=== PATIENT | male | born 1935 | race Caucasian/White ===

== ENCOUNTER 2022-01-12 10:29 | Inpatient (IN) | payer MEDICARE, OTHER ==
[~2022-01-12] VITALS: Ht 188 cm; Wt 90.0 kg
[2022-01-12] MEDS ORDERED: ACETAMINOPHEN 325 MG TABLET PO PRN (11:00)
[2022-01-12] MEDS ORDERED: diphenhydrAMINE 25 MG TAB (BENADRYL) PO PRN (11:00)
[2022-01-12] MEDS ORDERED: ONDANSETRON 4 MG/2 ML (SDV) Z0FRAN IV PRN (11:00)
[2022-01-12] MEDS ORDERED: ANTACID SUSP 30 ML UDC (MYLANTA) PO PRN (11:00)
[2022-01-12] MEDS ORDERED: ONDANSETRON 4 MG (ZOFRAN) ORAL DISSOLVE TAB PO PRN (11:00)
[2022-01-12] MEDS ORDERED: MILK OF MAGNESIA 400 MG/5 ML 30 ML UDC PO PRN (11:00)
[2022-01-12] MEDS ORDERED: BISACODYL 10 MG SUPP (DULCOLAX) PR PRN (11:00)
[2022-01-12] MEDS ORDERED: polyethylene glycoL POWDER 17 GM (MIRALAX) PACK PO PRN (11:00)
[2022-01-12] MEDS ORDERED: CALCIUM CARBONATE 500 MG (TUMS) TAB.CHEW PO PRN (11:00)
[2022-01-12] MEDS ORDERED: LACTULOSE SYRUP 10GM/15ML (ENULOSE) 30ML UDC PO PRN (11:00)
[2022-01-12] MEDS ORDERED: diphenhydrAMINE 50 MG/ML INJ (BENADRYL) IVP PRN (11:00)
[2022-01-12] MEDS ORDERED: NS IV 1000 ML 1,000 ML ONE (11:39)
[2022-01-12] MEDS: NS IV 1000 ML 1,000 ML IV SCH (11:53)
[2022-01-12 12:00] VITALS: BP 124/74
--- NOTE | 2022-01-12 12:09 | History & Physical ---
History of Present Illness HPI/Chief Complaint CC: Right hip fracture HPI: This is an 86yoWM clinic patient of mine who recently moved from [place] to live with his son at [place] who has numerous medical conditions managed at [facility] who just DC from [facility] after a 3 day stay last for abdominal pain with N/V and was found to have pancreatitis with abnormal CT scans revealing cystic liver and kidneys with chronic left sided ATX but was able to DC last Friday and saw me in clinic on Friday in [place] and was feeling well and amylase and lipase were trending down and he was tolerating bland diet who suffered a fall at home today when he was using his urinal and has suffered a right hip fracture after assessed in [facility] ER shortly before my arrival for morning rounds. I assessed him in the ER and since Dr Kelly was unavailable I reached out to Dr Cade and he graciously agreed for consultation and plans on repairing the fracture tomorrow at 0800. Dr Cruz has been consulted since he recently had a defib and pacemaker placed in 05/2021. He does have a h/o CKD and his creat was 2.4 at [facility] last week but has improved to 1.4 today. He is considered high risk for complications before during and post operatively but no ability to modify his risks so it is prudent to proceed on with repair as planned. He is [place] and his at bedside agrees with the plan. Considering hos complex issues I had Tylor Neal MSIII compile problem list on Friday after clinic appt: Hemorrhoids Diverticulosis of sigmoid and descending colon Chronic Heart Failure Pneumonia Lower GI Bleed Hypertension Polycystic dysplastic kidney Polycystic kidney Weakness due to cerebrovascular accident Sepsis Bacteremia due to E. Coli Infection to ESBL-producing E coli Myopathy Pancreatitis Abdominal Pain Common Bile Duct obstruction GI bleed Diverticulosis Colitis Emesis Influenza Reactive airway disease Urinary frequency Polycystic liver disease UTI Bacteremia Coronary artery disease History of sepsis Cholangitis due to bile duct calculus with obstruction Cough Sinusitis Leukocytosis Elevated LFTs Bacteremia Klebsiella pneumoniae Dehydration Vomiting Abdominal pain SIRS Biliary tract disease Chronic Kidney Disease (CKD) Anemia Acute bronchitis Recurrent fever Body aches Malaise and fatigue Renal insufficiency Intractable abdominal pain Persistent atrial fibrillation with RVR Hypertension Acute renal injury Diverticulitis Left Bundle Branch Block (LBBB) Other cardiomyopathies Combined rheumatic disorders of mitral, aortic, and tricuspid valves Ischemic cardiomyopathy Hematemesis Hypotension Tachycardia CKD stage 3, GFR 30-59 ml/min Cardiac Arrest DVT prophylaxis Hip pain Cellulitis Constipation Gastritis Duodenal bulb ulcer Sepsis Dilated cardiomyopathy Rib fractures Hypokalemia Hypomagnesemia Hyperlipidemia Sleep apnea Tricuspid regurgitation Acute on chronic systolic heart failure Mitral regurgitation Localized edema Duodenal perforation C. diff colitis- cannot tolerate vancomycin HIT Left femoral hip fracture and repair Left total knee replacement Drains for liver cyst ([facility]) Liver abscess Benign tremor involving right arm GI bleeding Gastritis Peptic ulcer disease Gout Hyperlipidemia Cerebrovascular accident Fever of unknown origin Appendectomy Cholecystectomy Hernia repair Tonsillectomy Hip procedure Parathyroid adenoma removal Lumbar surgery Multiple ERCPs Duodenal perforation repaired following the ERCP Multiple colonoscopies and sigmoidoscopies PTCA of right coronary artery in 2006 Left femoral hip fracture and repair Transurethral resection of the prostate Vasectomy PICC lines in the past GI bleed on warfarin Chronic recurrent bacteremia Dyslipidemia Degenerative joint disease Polycythemia Source: patient, family Exam Limitations: no limitations Date Seen 01/12/22 Time Seen by a Provider: 12:30 Attending Physician Ronit Solorio DO PCP Referring Physician Date of Admission Jan 12, 2022 at 11:04 Home Medications & Allergies Home Medications Reviewed patient Home Medication Reconciliation performed by pharmacy medication reconciliations product support technician and/or nursing. Patients Allergies have been reviewed. Allergies Allergies Coded Allergies gentamicin (Verified Allergy, Unknown, 01/12/22) vancomycin (Verified Allergy, Unknown, 01/12/22) Past Gjyocoh-Gzmsir-Pjzevt Hx Past Med/Social Hx: Reviewed Nursing Past Med/Soc Hx, Reviewed and Corrections made Patient Social History Marrital Status: Employed/Student: retired Alcohol Use: Denies Use Smoking Status: Never a Smoker Past Medical History Surgeries: Coronary Stent, Pacemaker Respiratory: Pneumonia Cardiac: Cardiomyopathy, Chronic Edema/Swelling, Coronary Artery Disease, High Cholesterol, Hypertension, Peripheral Vascular Neurological: Dementia Genitourinary: Benign Prostatic Hyperpl, Bladder Infection, Renal Failure Gastrointestinal: Gastroesophageal Reflux, Pancreatitis liver abscess x 2 Musculoskeletal: Arthritis, Chronic Back Pain Review of Systems Constitutional: see HPI, malaise, weakness EENTM: no symptoms reported Respiratory: no symptoms reported Cardiovascular: no symptoms reported Gastrointestinal: no symptoms reported Genitourinary: no symptoms reported Musculoskeletal: joint pain Skin: no symptoms reported Psychiatric/Neurological: No Symptoms Reported All Other Systems Reviewed Negative Unless Noted: Yes Physical Exam Physical Exam Vital Signs Vital Signs - First Documented 01/12/22 01/12/22 12:00 14:12 Temp 36.2 Pulse 89 Resp 16 B/P (MAP) 124/74 (91) Pulse Ox 98 O2 Delivery Room Air FiO2 21 Capillary Refill : Height, Weight, BMI Height: '" Weight: lbs. oz. kg; 25.46 BMI Method: General Appearance: No Apparent Distress, WD/WN, Chronically ill Eyes: Bilateral Eye Normal Inspection, Bilateral Eye PERRL HEENT: PERRL/EOMI, Normal ENT Inspection, Pharynx Normal, Other ([place]) Neck: Full Range of Motion, Normal Inspection, Non Tender, Supple, Carotid Bruit Respiratory: Chest Non Tender, Lungs Clear, Normal Breath Sounds, No Accessory Muscle Use, No Respiratory Distress Cardiovascular: Regular Rate, Rhythm, No Edema, No Gallop, No JVD, No Murmur, Normal Peripheral Pulses Gastrointestinal: Normal Bowel Sounds, No Organomegaly, No Pulsatile Mass, Non Tender, Soft Back: Normal Inspection, No CVA Tenderness, No Vertebral Tenderness Extremity: Normal Capillary Refill, Normal Inspection, Other (limited ROM right leg) Neurologic/Psychiatric: Alert, Oriented x3, Normal Mood/Affect, 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 Assessment/Plan Admission Diagnosis Assessment: Right hip fracture in need of repair so planned for tomorrow per Dr Alyssia LARA previous stents Ischemic cardiomyopathy has pacemaker and defib placed 05/2021 CKD Recent pancreatitis last weekend amylase and lipase now 143/527 Acute UTI placed on Rocephin GERD BPH Presbycusis Memory deficit Frail status Gout Depression Renal lithasis h/o hyperparathyroidism Neuropathy Polycystic kidney disease Cystic liver disease Previous liver abscess s/p drainage x 2 (1 at [place] other at [facility] in ) Anemia Plan: Dr Cruz consult Dr Cade consult Pain management Check labs in am Schultz Lovenox held until after surgery Monitor hgb Gentle IVF High risk for psychosis Admission Status: Inpatient Order (span 2 midnights) Reason for Inpatient Admission: hip fracture Diagnosis/Problems Diagnosis/Problems (1) Hip fracture, right (2) Pancreatitis (3) CKD (chronic kidney disease) stage 3, GFR 30-59 ml/min (4) Anemia (5) CAD (coronary artery disease) (6) Pacemaker (7) Presbycusis (8) Fall Clinical Quality Measures DVT/VTE Risk/Contraindication: Contraindications-Pharm: Other *list below* Other: or RONIT SOLORIO DO Jan 12, 2022 12:09
--- NOTE | 2022-01-12 12:27 | CONSULTATION REPORT ---
DATE OF SERVICE: 01/12/2022 INPATIENT CONSULTATION REASON FOR CONSULTATION: Right intertrochanteric femur fracture. HISTORY: The patient is an 86-year-old gentleman with multiple medical problems who was recently treated for pancreatitis at an outside facility, who fell this morning when he tripped on his walker. He was found to have a nondisplaced intertrochanteric femur fracture at an outside facility. He was referred here for definitive treatment. He denies any antecedent pain. PHYSICAL EXAMINATION: Right lower extremity demonstrates symmetric pulses. He has intact dorsiflexion and plantarflexion of the toes. Radiographs reveal nondisplaced intertrochanteric femur fracture. PLAN: Right hip intramedullary nail. The risks, benefits, options, ramifications and recovery were discussed with the patient and his . They understand and wished to proceed. We will plan on doing this on 01/13/2022 at 0800. Job ID: [id number] DocumentID: [id number] Dictated Date: 01/12/2022 12:10:44 Pairer Substandard Date: 01/12/2022 12:26:24 Dictated By: JENNA PHILLIPS MD
[2022-01-12] MEDS: fentaNYL INJ 100 MCG/2 ML AMP IVP PRN ×3 (12:33→20:54)
--- NOTE | 2022-01-12 13:42 | Consultation-Cardiology ---
HPI-Cardiology Cardiology Consultation Date of Consultation 01/12/22 Date of Admission Time Seen by Provider: 13:37 Indication: Congestive heart failure HPI 86 years old gentleman with extensive cardiac history as described below. Sustained a fall with fracture to his right hip. Reported nonsyncopal fall, overall generalized fatigue and loss of energy, he moved to our area recently. Has been established with a radiographer mammographer in [place]. Had a pacemaker implanted in May 2021. He denied any chest pain. No syncope. Mild dyspnea on exertion. Home Medications & Allergies Allergies: Coded Allergies: gentamicin (Verified Allergy, Unknown, 01/12/22) vancomycin (Verified Allergy, Unknown, 01/12/22) Home Medication List Reviewed: Yes NBS-Tcrwqg-Vyjoza Hx Patient Social History Marital Status: Employed/Student: retired Smoking Status: Never a Smoker Have you traveled recently?: No Alcohol Use?: Yes Past Medical History Discussed below Family Medical History Family Medical Hx Noncontributory Review of Systems-General Review of Systems Constitutional: see HPI, malaise, weakness EENTM: see HPI, no symptoms reported Respiratory: see HPI; No cough; dyspnea on exertion; No hemoptysis, No orthopnea, No phlegm, No short of breath, No stridor, No wheezing, No other Cardiovascular: see HPI; No chest pain, No edema, No Hx of Intervention; palpitations; No syncope, No vascular heart diseas, No other Gastrointestinal: no symptoms reported, see HPI Genitourinary: no symptoms reported, see HPI Musculoskeletal: see HPI, joint pain (Hip fracture) Skin: no symptoms reported, see HPI Psychiatric/Neurological: No Symptoms Reported, See HPI Physical Exam Physical Exam Vital Signs Vital Signs - First Documented 01/12/22 01/12/22 12:00 14:12 Temp 36.2 Pulse 89 Resp 16 B/P (MAP) 124/74 (91) Pulse Ox 98 O2 Delivery Room Air FiO2 21 Capillary Refill : Height, Weight, BMI Height: '" Weight: lbs. oz. kg; 25.46 BMI Method: General Appearance: No Apparent Distress, WD/WN Eyes: Bilateral Eye Normal Inspection, Bilateral Eye PERRL, Bilateral Eye EOMI HEENT: PERRL/EOMI, TMs Normal, Normal ENT Inspection, Pharynx Normal, Moist Mucous Membranes Neck: Full Range of Motion, Normal Inspection, Non Tender, Supple, Carotid Bruit Respiratory: Chest Non Tender, Normal Breath Sounds, No Accessory Muscle Use, No Respiratory Distress Cardiovascular: Regular Rate, Rhythm, No Edema, No Gallop, No JVD, Normal Peripheral Pulses, Systolic Murmur (Systolic murmur at left sternal border) Gastrointestinal: Normal Bowel Sounds, No Organomegaly, No Pulsatile Mass, Non Tender, Soft Back: Normal Inspection, No CVA Tenderness, No Vertebral Tenderness Extremity: Normal Capillary Refill, No Pedal Edema, Other (Right hip fracture) Neurologic/Psychiatric: Alert, Oriented x3, No Motor/Sensory Deficits, Normal Mood/Affect Skin: Normal Color, Warm/Dry Lymphatic: No Adenopathy A/P-Cardiology Admission Diagnosis Hip fracture Coronary artery disease Congestive heart failure, chronic compensated left ventricular systolic dysfunction Hypertension Assessment/Plan Right hip fracture, scheduled for possible surgery, management per orthopedic. Coronary artery disease, history of cardiac catheterization and stent in 2005, no recent stenting was done, has been following with a radiographer mammographer in [place]. Moved to this area recently. Congestive heart failure, chronic compensated left ventricular systolic dysfunction, ejection fraction 30 to 35%. History of mitral regurgitation tricuspid regurgitation, mild aortic stenosis noted on echo. Restart home medication monitor Paroxysmal atrial fibrillation, intolerant to anticoagulation secondary to GI bleed. 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 Chronic kidney disease stage III-IV, following with primary care physician Hypertension, monitor blood pressure Hyperlipidemia, monitor lipids History of heparin induced thrombocytopenia, monitor platelets closely. History of GI bleed, peptic ulcer disease, intolerant to aggressive a nticoagulation. History of pancreatitis, resolved recently History of parathyroid adenoma, cholecystectomy, liver abscess and drainage, hernia surgery, gouty arthritis. Peptic ulcer disease Clinical Quality Measures DVT/VTE Risk/Contraindication: Contraindications-Pharm: Other *list below* Other: or NGUYEN BELL MD Jan 12, 2022 13:42
[2022-01-12] MEDS: SUCRALFATE 1 GM (CARAFATE) TAB PO SCH ×3 (13:54→21:00)
[2022-01-12 14:12] VITALS: BP 124/74
--- NOTE | 2022-01-12 14:12 | Diagnostic Imaging Report ---
INDICATION: Cough. TIME OF EXAM: 1:23 PM COMPARISON: No prior studies are available for comparison. Dual lead left subclavian cardiac pacer is in place. There is a left-sided small effusion with some associated left basilar atelectasis or infiltrate. Right lung is clear. There is no pneumothorax IMPRESSION: Left basilar infiltrate or atelectasis and left basilar effusion. Dictated by: Dictated on workstation # [id number]
[2022-01-12] MEDS ORDERED: RT-ALBUTEROL SULF 2.5 MG/3 ML PRE-MIX VIAL INH PRN (14:30)
[2022-01-12] MEDS: HYDROcodone/APAP 5 MG/325 MG (LORTAB) TAB PO PRN (15:22)
[2022-01-12 16:00] VITALS: BP 100/62
[2022-01-12 19:34] VITALS: BP 106/65
[2022-01-12] MEDS ORDERED: HALOPERIDOL 5 MG/ML (HALDOL) VIAL IM PRN (20:00)
[2022-01-12] MEDS: PANTOPRAZOLE 40 MG (PROTONIX) TAB PO SCH (20:55)
[2022-01-12] MEDS: DOCUSATE SODIUM 100 MG (COLACE) CAP PO SCH (20:55)
[2022-01-12] MEDS: SENNOSIDES 8.6 MG (SENOKOT) TAB PO SCH (20:55)
[2022-01-12] MEDS ORDERED: MELATONIN 3 MG TABLET PO PRN (21:00)
[2022-01-13] VITALS (14 sets, daily range): BP systolic 95–111; BP diastolic 51–64
[2022-01-13] MEDS: NS IV 1000 ML 1,000 ML IV SCH ×2 (01:00→18:07)
[2022-01-13 06:03] LABS: BASOPHILS # (AUTO) 0.1 10^3/uL (0.0-0.1); BASOPHILS % (AUTO) 1 % (0-10); EOSINOPHILS # (AUTO) 0.1 10^3/uL (0.0-0.3); EOSINOPHILS % (AUTO) 2 % (0-10); HEMATOCRIT 29 % (40-54); HEMOGLOBIN 8.9 g/dL (13.3-17.7); LYMPHOCYTES # (AUTO) 0.7 10^3/uL (1.0-4.0); LYMPHOCYTES % (AUTO) 9 % (12-44); MEAN CORPUSCULAR HEMOGLOBIN 28 pg (25-34); MEAN CORPUSCULAR HGB CONC 31 g/dL (32-36); MEAN CORPUSCULAR VOLUME 89 fL (80-99); MEAN PLATELET VOLUME 10.1 fL (9.0-12.2); MONOCYTES # (AUTO) 0.5 10^3/uL (0.0-1.0); MONOCYTES % (AUTO) 6 % (0-12); NEUTROPHILS # (AUTO) 6.9 10^3/uL (1.8-7.8); NEUTROPHILS % (AUTO) 82 % (42-75); PLATELET COUNT 120 10^3/uL (130-400); WHITE BLOOD COUNT 8.5 10^3/uL (4.3-11.0)
[2022-01-13 06:22] LABS: ALBUMIN 2.6 GM/DL (3.2-4.5); POTASSIUM 3.9 MMOL/L (3.6-5.0)
--- NOTE | 2022-01-13 06:22 | Progress Note ---
Subjective Date Seen by a Provider: Jan 13, 2022 Time Seen by a Provider: 12:00 Subjective/Events-last exam Patient seen postoperatively at bedside Patient appears to be doing well No pain is reported but patient still sedated from anesthesia I did prepare of delirium Labs reviewed Checked meds Objective Exam Last Set of Vital Signs Vital Signs Date Time Temp Pulse Resp B/P (MAP) Pulse Ox O2 Delivery O2 Flow Rate FiO2 01/13/22 04:00 37.0 70 17 101/55 (70) 94 Room Air 01/12/22 14:12 21 Capillary Refill : I&O Intake and Output 01/13/22 00:00 Intake Total 2860 ml Output Total 500 ml Balance 2360 ml Intake Oral 1860 ml IV Total 1000 ml Output Urine Total 500 ml Daily Weight Change No General: Other ([place]) Lungs: Clear to Auscultation, Normal Air Movement Heart: Regular Rate Results Lab Laboratory Tests 01/13/22 05:52: White Blood Count 8.5, Red Blood Count 3.23L, Hemoglobin 8.9L, Hematocrit 29L, Mean Corpuscular Volume 89, Mean Corpuscular Hemoglobin 28, Mean Corpuscular Hemoglobin Concent 31L, Red Cell Distribution Width 22.9H, Platelet Count 120L, Mean Platelet Volume 10.1, Immature Granulocyte % (Auto) 1, Neutrophils (%) (Auto) 82H, Lymphocytes (%) (Auto) 9L, Monocytes (%) (Auto) 6, Eosinophils (%) (Auto) 2, Basophils (%) (Auto) 1, Neutrophils # (Auto) 6.9, Lymphocytes # (Auto) 0.7L, Monocytes # (Auto) 0.5, Eosinophils # (Auto) 0.1, Basophils # (Auto) 0.1, Immature Granulocyte # (Auto) 0.1 Assessment/Plan Assessment/Plan Assess & Plan/Chief Complaint Assessment: Right hip fracture status post uncomplicated repair per Dr Cade POD#0 CAD previous stents Ischemic cardiomyopathy has pacemaker placed 05/2021 CKD Recent pancreatitis last weekend amylase and lipase now 143/527 Acute UTI placed on Rocephin GERD BPH Presbycusis Memory deficit Frail status Gout Depression Renal lithasis h/o hyperparathyroidism Neuropathy Polycystic kidney disease Cystic liver disease Previous liver abscess s/p drainage x 2 (1 at [place] other at [facility] in ) Anemia Plan: Dr Cruz consult Dr Cade consult Pain management Check labs in am Schultz Lovenox held until after surgery Monitor hgb Gentle IVF High risk for psychosis 01/13/2022: Supportive care Haldol and Ativan if needed for delirium PT and OT tomorrow Monitor labs Rocephin for UTI Iron infusions Swing bed at [place] Diagnosis/Problems Diagnosis/Problems (1) Hip fracture, right (2) Pancreatitis (3) CKD (chronic kidney disease) stage 3, GFR 30-59 ml/min (4) Anemia (5) CAD (coronary artery disease) (6) Pacemaker (7) Presbycusis (8) Fall Clinical Quality Measures DVT/VTE Risk/Contraindication: Contraindications-Pharm: Other *list below* Other: or GEORGINA SOLORIO DO Jan 13, 2022 06:22
[2022-01-13 06:23] LABS: CALCIUM 8.2 MG/DL (8.5-10.1)
[2022-01-13 06:25] LABS: TOTAL PROTEIN 5.6 GM/DL (6.4-8.2)
[2022-01-13 06:28] LABS: CREATININE SERUM 1.4 MG/DL (0.60-1.30)
[2022-01-13] MEDS ORDERED: IRON SUCROSE 200 MG/10 ML (VENOFER) VIAL IV SCH (06:30)
[2022-01-13] MEDS ORDERED: BUPIVACAINE 0.25% 30 ML (SENSORCAINE) VIAL ONE (07:00)
[2022-01-13] MEDS: SUCRALFATE 1 GM (CARAFATE) TAB PO SCH ×4 (07:22→20:47)
[2022-01-13] MEDS ORDERED: MIDAZOLAM 2 MG/2 ML (VERSED) VIAL ONE (07:23)
[2022-01-13] MEDS ORDERED: fentaNYL INJ 100 MCG/2 ML AMP ONE ×2 (07:23→08:30)
--- NOTE | 2022-01-13 07:35 | Progress Note-Pre Operative ---
Pre-Operative Progress Note H&P Reviewed The H&P was reviewed, patient examined and no changes noted. Date Seen by Provider: Jan 13, 2022 Time Seen by Provider: 07:29 Date H&P Reviewed: Jan 13, 2022 Time H&P Reviewed: 07:11 Pre-Operative Diagnosis: right intertrochanteric femur fracture JENNA PHILLIPS MD Jan 13, 2022 07:35
--- NOTE | 2022-01-13 07:36 | Progress Note-Post Operative ---
Post-Operative Progess Note Surgeon (s)/Major Sales Associate (s) Surgeon JENNA PHILLIPS MD Major Sales Associate: Michoacano Cardenas Pre-Operative Diagnosis right intertrochanteric femur fracture Post-Operative Diagnosis right intertrochanteric femur fracture Procedure & Operative Findings Date of Procedure 01/13/22 Procedure Performed/Findings right hip intramedullary nail Anesthesia Type GETA Estimated Blood Loss Estimated blood loss (mL): 100ml Specimens/Packing Specimens Removed none Packing: none JENNA PHILLIPS MD Jan 13, 2022 07:36
[2022-01-13] MEDS ORDERED: ceFAZolin 2 GM IV Premixed 50 ML IV NR (07:45)
[2022-01-13] MEDS ORDERED: NS (IVPB) 50 ML ONE (08:09)
[2022-01-13] MEDS ORDERED: PHENYLEPHRINE 100 MCG/ML 10 ML (ANESTHESIA) SYR ONE ×2 (08:10→08:19)
[2022-01-13] MEDS ORDERED: PHENYLEPHRINE INJ 10 MG/ML (FOR DRIP KITS ONLY) ONE (08:12)
[2022-01-13] MEDS ORDERED: ONDANSETRON 4 MG/2 ML (SDV) Z0FRAN ONE ×2 (08:19→08:30)
[2022-01-13] MEDS ORDERED: LIDOCAINE PF 2% 5 ML (XYLOCAINE) VIAL ONE (08:19)
[2022-01-13] MEDS ORDERED: proPOfol 200 MG/20 ML (DIPRIVAN) VIAL IV ONE (08:19)
[2022-01-13] MEDS ORDERED: LACTATED RINGERS 1,000 ML IV PRN (08:30)
[2022-01-13] MEDS ORDERED: SEVOFLURANE (ULTANE) 15 ML INHAL SOLN ONE (08:35)
[2022-01-13] MEDS ORDERED: ceFAZolin 2 GM IV Premixed 50 ML IV SCH (08:45)
[2022-01-13] MEDS ORDERED: NALOXONE 0.4 MG/ML 1 ML (NARCAN) VIAL IV PRN (08:45)
[2022-01-13] MEDS ORDERED: ONDANSETRON 4 MG/2 ML (SDV) Z0FRAN IVP PRN (08:45)
--- NOTE | 2022-01-13 08:58 | Diagnostic Imaging Report ---
EXAM: Intraoperative right hip radiographs. EXAM DATE: 01/13/2022. COMPARISON: None. HISTORY: Fluoroscopic guidance for open reduction and internal fixation. TECHNIQUE: Three views of the right hip. Total fluoroscopy time 52.9 seconds. Cumulative dose 6.77 mGy. FINDINGS: Surgical changes from open reduction and internal fixation. Hardware is in good alignment. IMPRESSION: Fluoroscopic guidance for intraoperative open reduction and internal fixation. Please see operative report for more details. Dictated by: Dictated on workstation # [id number]
[2022-01-13] MEDS ORDERED: cefTRIAXone 1 GM PRE-MIX 50 ML IV SCH (09:00)
[2022-01-13] MEDS: DOCUSATE SODIUM 100 MG (COLACE) CAP PO SCH ×2 (10:27→20:47)
[2022-01-13] MEDS: SENNOSIDES 8.6 MG (SENOKOT) TAB PO SCH ×2 (10:27→21:50)
[2022-01-13] MEDS: HYDROcodone/APAP 5 MG/325 MG (LORTAB) TAB PO PRN (10:27)
[2022-01-13] MEDS: PANTOPRAZOLE 40 MG (PROTONIX) TAB PO SCH ×2 (10:27→21:50)
[2022-01-13] MEDS: LORazepam INJ 2 MG/ML (ATIVAN) VIAL IVP PRN ×2 (10:28→16:39)
[2022-01-13] MEDS: fentaNYL INJ 100 MCG/2 ML AMP IVP PRN ×3 (10:28→20:48)
--- NOTE | 2022-01-13 11:08 | Cardiology Progress Note ---
Subjective Date Seen by Provider: Jan 13, 2022 Time Seen by Provider: 11:06 Subjective/Events-last exam Patient was seen at bedside, sleeping. Underwent surgery earlier Review of Systems General: No Chills, No Night Sweats, No Fatigue, No Malaise, No Appetite, No Other HEENT: No Head Aches, No Visual Changes, No Eye Pain, No Ear Pain, No Dysphasia, No Sinus Congestion, No Post Nasal Drip, No Sore Throat, No Other Pulmonary: No Dyspnea, No Cough, No Pleuritic Chest Pain, No Other Cardiovascular: Chest Pain; No: Palpitations, Orthopnea, Paroxysmal Noc. Dyspnea, Edema, Lt Headedness, Other Objective-Cardiology Exam Last Set of Vital Signs Vital Signs 01/12/22 01/13/22 01/13/22 14:12 10:36 10:37 Temp 37.0 Pulse 71 Resp 16 B/P (MAP) 97/55 (69) Pulse Ox 96 O2 Delivery Nasal Cannula O2 Flow Rate 3.00 FiO2 21 I&O Intake and Output 01/12/22 23:59 Intake Total 2860 ml Output Total 500 ml Balance 2360 ml Intake Oral 1860 ml IV Total 1000 ml Output Urine Total 500 ml Daily Weight Change No General: Alert, Oriented X3, Cooperative HEENT: Atraumatic, PERRLA Neck: Supple, No JVD, No Thyromegaly Lungs: Clear to Auscultation, Normal Air Movement Heart: Regular Rate, Normal S1, Normal S2, No Murmurs Abdomen: Normal Bowel Sounds, Soft, No Tenderness, No Hepatosplenomegaly, No Masses Extremities: No Clubbing, No Cyanosis, No Edema, Normal Pulses, No Tenderness/Swelling Skin: No Significant Lesion Neuro: Normal Speech, Normal Tone, Sensation Intact Psych/Mental Status: Mood NL Results Lab Laboratory Tests 01/13/22 05:52 A/P-Cardiology Admission Diagnosis Hip fracture Coronary artery disease Congestive heart failure, chronic compensated left ventricular systolic dysfunction Hypertension Assessment/Plan Right hip fracture, underwent right hip nail surgery, done on January 14, 2012 Recovering slowly. Doing well. Coronary artery disease, history of cardiac catheterization and stent in 2005, no recent stenting was done, has been following with a hook and eye machine operator in [place]. Moved to this area recently. Congestive heart failure, chronic compensated left ventricular systolic dysfunction, ejection fraction 30 to 35%. History of mitral regurgitation tricuspid regurgitation, mild aortic stenosis noted on echo. Restart home medication monitor Paroxysmal atrial fibrillation, intolerant to anticoagulation secondary to GI bleed. 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 Patient has BiV pacemaker, [employer] device. Continue to monitor Chronic kidney disease stage III-IV, following with primary care physician Hypertension, monitor blood pressure Hyperlipidemia, monitor lipids History of heparin induced thrombocytopenia, monitor platelets closely. History of GI bleed, peptic ulcer disease, intolerant to aggressive anticoagulation. History of pancreatitis, resolved recently History of parathyroid adenoma, cholecystectomy, liver abscess and drainage, hernia surgery, gouty arthritis. Peptic ulcer disease NGUYEN BELL MD Jan 13, 2022 11:08
--- NOTE | 2022-01-13 13:52 | Anesthesia-General Post-Op ---
General Patient Condition Mental Status/LOC: Same as Preop Cardiovascular: Satisfactory Nausea/Vomiting: Absent Respiratory: Satisfactory Pain: Controlled Complications: Absent Post Op Complications Complications None Follow Up Care/Instructions Patient Instructions None needed. Anesthesia/Patient Condition Patient Condition Patient is doing well, no complaints, stable vital signs, no apparent adverse anesthesia problems. No complications reported per nursing. SLOAN FITZGERALD CRNA Jan 13, 2022 13:52
--- NOTE | 2022-01-13 14:15 | OPERATIVE REPORT ---
DATE OF SERVICE: 01/13/2022 PREOPERATIVE DIAGNOSIS: Right intertrochanteric femur fracture. POSTOPERATIVE DIAGNOSIS: Right intertrochanteric femur fracture. PROCEDURE: Right hip intramedullary nail. SURGEON: Mayco Phillips MD COMMUTATOR REPAIRER: KRISHAN Martin, who assisted throughout the procedure and closed the incisions. ANESTHESIA: General endotracheal by Aurora Gallardo CRNA. ESTIMATED BLOOD LOSS: 100 mL. DRAINS: None. COMPLICATIONS: None. POSTOPERATIVE PLAN: Weightbearing as tolerated, right lower extremity. MATERIALS: Synthes short 12 mm nail with 110 mm blade statically locked. CONDITION: The patient was transferred to recovery room in awake and stable condition. STATEMENT OF MEDICAL NECESSITY: The patient is an 86-year-old gentleman who fell at home yesterday and was found to have a nondisplaced intertrochanteric femur fracture. He was transferred from an outside facility for definitive treatment. The patient has multiple medical problems and comorbidities and the patient and his family understands that he is high risk for perioperative morbidity. In order to maintain his ambulatory status, the patient's family elected to proceed with surgical intervention. DESCRIPTION OF PROCEDURE: After risks and benefits of procedure were discussed and questions were answered, an informed consent was signed and placed on chart, the operative site was confirmed in the preoperative holding area initialed by the surgeon. The patient was then transferred to the operating room and after adequate levels of general endotracheal anesthetic were obtained, the patient was carefully transferred to the fracture table and longitudinal traction was applied. Fluoroscopy in the AP and lateral planes revealed anatomic reduction of the fracture. The right hip and lower extremity were prepped and draped in the usual sterile fashion. An incision was made from the greater trochanter extending proximally. The iliotibial band was incised. The guidewire was passed from the greater trochanter into the femoral canal. This was found to be in excellent position in the AP and lateral planes. This was then overreamed and a 12 mm short nail was placed with good alignment obtained. The guidewire was then passed into the femoral head through a percutaneous incision. This was felt to be well positioned this was then overdrilled and a 110 mm blade was placed with excellent purchase obtained. This was locked proximally and the distal locking screw was placed under fluoroscopic guidance with good purchase obtained. Fluoroscopy in the AP and lateral planes revealed anatomic reduction of the fracture with well-placed hardware. The wounds were copiously irrigated. The iliotibial band was closed in a [id number] interrupted fashion with #1 Vicryl. A 3-0 Vicryl was used in the subcutaneous tissue, malcolm used on the skin. A soft dressing was applied and the patient was transferred to the recovery room awake and in stable condition. Job ID: [id number] DocumentID: [id number] Dictated Date: 01/13/2022 08:45:00 Electrostatic Powder Coating Technician Date: 01/13/2022 14:14:47 Dictated By: MAYCO PHILLIPS MD
[2022-01-13] MEDS: cefTRIAXone 1 GM PRE-MIX 50 ML IV SCH (14:26)
[2022-01-13] MEDS: ceFAZolin 2 GM IV Premixed 50 ML IV SCH (16:23)
[2022-01-13] MEDS: LORATADINE (CLARITIN) 10 MG TAB PO SCH (20:47)
[2022-01-13] MEDS: MONTELUKAST 10 MG (SINGULAIR) TAB PO SCH (20:47)
[2022-01-14] VITALS (7 sets, daily range): BP systolic 98–109; BP diastolic 55–68
[2022-01-14] MEDS: ceFAZolin 2 GM IV Premixed 50 ML IV SCH (00:10)
[2022-01-14] MEDS: NS IV 1000 ML 1,000 ML IV SCH ×2 (04:08→17:29)
[2022-01-14 05:33] LABS: BASOPHILS % (AUTO) 0 % (0-10); EOSINOPHILS % (AUTO) 0 % (0-10); HEMOGLOBIN 8.6 g/dL (13.3-17.7)
[2022-01-14 05:35] LABS: HEMATOCRIT 28 % (40-54); LYMPHOCYTES # (AUTO) 0.6 10^3/uL (1.0-4.0); LYMPHOCYTES % (AUTO) 5 % (12-44); MEAN CORPUSCULAR HEMOGLOBIN 27 pg (25-34); MEAN CORPUSCULAR HGB CONC 31 g/dL (32-36); MEAN CORPUSCULAR VOLUME 90 fL (80-99); MEAN PLATELET VOLUME 9.8 fL (9.0-12.2); MONOCYTES # (AUTO) 0.5 10^3/uL (0.0-1.0); MONOCYTES % (AUTO) 5 % (0-12); NEUTROPHILS # (AUTO) 10.6 10^3/uL (1.8-7.8); NEUTROPHILS % (AUTO) 89 % (42-75); PLATELET COUNT 129 10^3/uL (130-400); WHITE BLOOD COUNT 11.8 10^3/uL (4.3-11.0)
[2022-01-14 06:00] LABS: ANISOCYTOSIS SLIGHT; BAND NEUTROPHILS 1 %; ELLIPT/OVALOCYTES SLIGHT; LYMPHOCYTES % (MANUAL) 7 %; MONOCYTES % (MANUAL) 1 %; NEUTROPHILS % (MANUAL) 91 %
[2022-01-14 06:01] LABS: ALBUMIN 2.7 GM/DL (3.2-4.5); BILIRUBIN,TOTAL 0.5 MG/DL (0.1-1.0); CREATININE SERUM 1.51 MG/DL (0.60-1.30); POTASSIUM 4.1 MMOL/L (3.6-5.0)
[2022-01-14] MEDS: SUCRALFATE 1 GM (CARAFATE) TAB PO SCH ×4 (06:21→20:34)
--- NOTE | 2022-01-14 08:06 | Progress Note ---
Standard Progress Note Progress Notes/Assess & Plan Date Seen by a Provider: Jan 14, 2022 Time Seen by a Provider: 08:05 Progress/Assessment & Plan sitting on edge of bed with PT Vital Signs Date Time Temp Pulse Resp B/P (MAP) Pulse Ox O2 Delivery O2 Flow Rate FiO2 01/14/22 07:30 36.8 69 18 102/59 (73) 97 Nasal Cannula 1.50 01/14/22 04:00 37.0 71 18 109/55 (73) 97 Room Air 01/14/22 01:00 73 01/14/22 00:00 36.1 70 19 101/61 (74) 97 Nasal Cannula 1.50 01/13/22 20:57 Room Air 01/13/22 20:40 70 01/13/22 19:32 36.4 71 18 99/58 (72) 97 Nasal Cannula 1.50 01/13/22 19:00 70 01/13/22 16:00 36.4 69 20 103/59 (74) 98 Nasal Cannula 3.00 01/13/22 12:53 70 01/13/22 12:00 37.0 71 16 102/58 (73) 96 Room Air 01/13/22 10:37 37.0 71 16 97/55 (69) 3.00 01/13/22 10:36 96 Nasal Cannula 2.00 01/13/22 10:06 Nasal Cannula 01/13/22 09:50 36.3 20 105/62 (76) 97 Nasal Cannula 3 01/13/22 09:50 Nasal Cannula 3 01/13/22 09:45 Nasal Cannula 3 01/13/22 09:40 20 105/60 (75) 96 Nasal Cannula 3 01/13/22 09:30 Room Air 01/13/22 09:30 20 96/58 (71) 96 Nasal Cannula 3 01/13/22 09:20 20 107/58 (74) 95 OxyMask 3 01/13/22 09:15 OxyMask 5 01/13/22 09:10 20 110/64 (79) 99 OxyMask 5 01/13/22 09:00 OxyMask 5 01/13/22 09:00 20 111/63 (79) 99 OxyMask 5 01/13/22 08:50 20 110/62 (78) 99 OxyMask 6 01/13/22 08:46 36.2 20 110/64 (79) 99 OxyMask 6 01/13/22 08:46 OxyMask 6 I & O 01/14/22 07:00 Intake Total 7150 ml Output Total 425 ml Balance 6725 ml Laboratory Tests Test 01/14/22 05:30 Range/Units White Blood Count 11.8 H 4.3-11.0 10^3/uL Red Blood Count 3.15 L 4.30-5.52 10^6/uL Hemoglobin 8.6 L 13.3-17.7 g/dL Hematocrit 28 L 40-54 % Mean Corpuscular Volume 90 80-99 fL Mean Corpuscular Hemoglobin 27 25-34 pg Mean Corpuscular Hemoglobin Concent 31 L 32-36 g/dL Red Cell Distribution Width 23.2 H 10.0-14.5 % Platelet Count 129 L 130-400 10^3/uL Mean Platelet Volume 9.8 9.0-12.2 fL Immature Granulocyte % (Auto) 1 % Neutrophils (%) (Auto) 89 H 42-75 % Lymphocytes (%) (Auto) 5 L 12-44 % Monocytes (%) (Auto) 5 0-12 % Eosinophils (%) (Auto) 0 0-10 % Basophils (%) (Auto) 0 0-10 % Neutrophils # (Auto) 10.6 H 1.8-7.8 10^3/uL Lymphocytes # (Auto) 0.6 L 1.0-4.0 10^3/uL Monocytes # (Auto) 0.5 0.0-1.0 10^3/uL Eosinophils # (Auto) 0.0 0.0-0.3 10^3/uL Basophils # (Auto) 0.0 0.0-0.1 10^3/uL Immature Granulocyte # (Auto) 0.1 0.0-0.1 10^3/uL Neutrophils % (Manual) 91 % Lymphocytes % (Manual) 7 % Monocytes % (Manual) 1 % Band Neutrophils 1 % Percent Immature Platelet Fraction 5.4 0.0-7.6 % Basophilic Stippling SLIGHT Anisocytosis SLIGHT Elliptocytes SLIGHT Sodium Level 137 135-145 MMOL/L Potassium Level 4.1 3.6-5.0 MMOL/L Chloride Level 113 H 98-107 MMOL/L Carbon Dioxide Level 15 L 21-32 MMOL/L Anion Gap 9 5-14 MMOL/L Blood Urea Nitrogen 33 H 7-18 MG/DL Creatinine 1.51 H 0.60-1.30 MG/DL Estimat Glomerular Filtration Rate 45 BUN/Creatinine Ratio 22 Glucose Level 144 H 70-105 MG/DL Calcium Level 8.0 L 8.5-10.1 MG/DL Corrected Calcium 9.0 8.5-10.1 MG/DL Total Bilirubin 0.5 0.1-1.0 MG/DL Aspartate Amino Transf (AST/SGOT) 13 5-34 U/L Alanine Aminotransferase (ALT/SGPT) 8 0-55 U/L Alkaline Phosphatase 60 40-136 U/L Total Protein 6.0 L 6.4-8.2 GM/DL Albumin 2.7 L 3.2-4.5 GM/DL R hip dressing intact intact DF and PF of toes and ankle s/p R hip IM angela PT IRU vs [facility]? JENNA PHILLIPS MD Jan 14, 2022 08:06
--- NOTE | 2022-01-14 08:32 | Cardiology Progress Note ---
Subjective Date Seen by Provider: Jan 14, 2022 Time Seen by Provider: 08:31 Subjective/Events-last exam Patient is sitting up in chair, complaining of right hip pain. Denies any chest pain or dyspnea. Review of Systems General: No Chills, No Night Sweats; Fatigue, Malaise; No Appetite, No Other HEENT: No Head Aches, No Visual Changes, No Eye Pain, No Ear Pain, No Dy sphasia, No Sinus Congestion, No Post Nasal Drip, No Sore Throat, No Other Pulmonary: No Dyspnea, No Cough, No Pleuritic Chest Pain, No Other Cardiovascular: No: Chest Pain, Palpitations, Orthopnea, Paroxysmal Noc. Dyspnea, Edema, Lt Headedness, Other Objective-Cardiology Exam Last Set of Vital Signs Vital Signs 01/12/22 01/14/22 14:12 11:44 Temp 36.6 Pulse 69 Resp 18 B/P (MAP) 107/68 (81) Pulse Ox 97 O2 Delivery Nasal Cannula O2 Flow Rate 1.50 FiO2 21 I&O Intake and Output 01/14/22 00:00 Intake Total 7500 ml Output Total 675 ml Balance 6825 ml Intake Oral 850 ml IV Total 6650 ml Output Urine Total 675 ml Post Void Residual 0 ml # Voids 1 General: Other (Sedated) HEENT: Atraumatic, PERRLA Neck: Supple, No JVD, No Thyromegaly Lungs: Clear to Auscultation, Normal Air Movement Heart: Regular Rate Abdomen: Normal Bowel Sounds, Soft, No Tenderness, No Hepatosplenomegaly, No Masses Extremities: No Clubbing, No Cyanosis, No Edema, Normal Pulses, No Tenderness/Swelling Skin: No Significant Lesion Neuro: Normal Speech, Normal Tone, Sensation Intact Psych/Mental Status: Mood NL Results Lab Laboratory Tests 01/14/22 05:30 A/P-Cardiology Admission Diagnosis Hip fracture Coronary artery disease Congestive heart failure, chronic compensated left ventricular systolic dysfunction Hypertension Assessment/Plan Right hip fracture, underwent right hip nail surgery, done on January 14, 2012 Recovering slowly. Doing well. Coronary artery disease, history of cardiac catheterization and stent in 2005, no recent stenting was done, has been following with a health and safety inspector in [place]. Moved to this area recently. Congestive heart failure, chronic compensated left ventricular systolic dysfunction, ejection fraction 30 to 35%. History of mitral regurgitation tricuspid regurgitation, mild aortic stenosis noted on echo. Paroxysmal atrial fibrillation, intolerant to anticoagulation secondary to GI bleed. 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 Patient has BiV pacemaker, [employer] device. Continue to monitor Chronic kidney disease stage III-IV, following with primary care physician Hypertension, controlled, continue to monitor blood pressure Hyperlipidemia, monitor lipids History of heparin induced thrombocytopenia, monitor platelets closely. History of GI bleed, peptic ulcer disease, intolerant to aggressive anticoagulation. History of pancreatitis, resolved recently History of parathyroid adenoma, cholecystectomy, liver abscess and drainage, hernia surgery, gouty arthritis. Peptic ulcer disease Supervisory-Addendum Brief Supervisory Addendum Participated in pt care: history, MDM, physical Personally performed: exam, history, MDM Care discussed with: COREY Results interpretation: Verified all documentation Notes: Patient was seen and evaluated with Karla, examination performed, management plan was discussed, agree with the current scribed note, I made few changes to the note using Italic font Patient is sitting in a chair, complaining of pain at the surgical site Cardiac status is stable, restart home medication Monitor blood pressure KARLA BRAY Jan 14, 2022 08:32 NGUYEN BELL MD Jan 14, 2022 12:00
[2022-01-14] MEDS: HYDROcodone/APAP 5 MG/325 MG (LORTAB) TAB PO PRN ×3 (08:45→23:04)
--- NOTE | 2022-01-14 09:46 | Physical Therapy Evaluation ---
PT Evaluation-General Medical Diagnosis Admission Date Jan 12, 2022 at 11:04 Medical Diagnosis: right hip fracture Onset Date: Jan 12, 2022 Therapy Diagnosis Therapy Diagnosis: generalized weakness/debility Precautions Precautions/Isolations: Fall Prevention, Standard Precautions Weight Bear Status Right Lower Extremity: Right Weight Bearing/Tolerated Left Lower Extremity: Left Full Weight Bearing Referral Physician: Alyssia Reason for Referral: Evaluation/Treatment Medical History Pertinent Medical History: Atrial Fib, CAD, Dementia, Heart Failure, PVD, Renal Insufficiency Current History Transfer from [facility] due to fall at home requiring surgical repair right hip Reviewed History: Yes Social History Home: Single Level Current Living Status: Children Entry Into Home: Level Entry Prior Prior Level of Function SCALE: Activities may be completed with or without assistive devices. 9-Mneulisexl-ykfbtxc completes the activity by him/herself with no assistance from a helper. 5-Set-up or Clean-up Assistance-helper sets up or cleans up; patient completes activity. [place] assists only prior to or following the activity. 4-Supervision or Touching Assistance-helper provides verbal cues and/or touching/steadying and/or contact guard assistance as patient completes activity. Assistance may be provided throughout the activity or intermittently. 3-Partial/Moderate Assistance-helper does LESS THAN HALF the effort. [place] lifts, holds or supports trunk or limbs, but provides less than half the effort. 2-Substantial/Maximal Assistance-helper does MORE THAN HALF the effort. [place] lifts or holds trunk or limbs and provides more than half the effort. 4-Biapopzqj-ulmihv does ALL the effort. Patient does none of the effort to complete the activity. Or, the assistance of 2 or more helpers is required for the patient to complete the activity. If activity was not attempted, code reason: 7-Patient Refused. 9-Not Applicable-not attempted and the patient did not perform the activity before the current illness, exacerbation or injury. 10-Not Attempted due to Environmental Limitations-(lack of equipment, weather restraints, etc.). 88-Not Attempted due to Medical Conditions or Safety Concerns. Bed Mobility: 6 Transfers (B,C,W/C): 6 Gait: 6 Indoor Mobility (Ambulation): Independent Prior Devices Use: None PT Evaluation-Current Subjective Patient states, "My leg won't work. It hurts too much." Physician present for assessment. Pain Numeric Pain Scale: 10-Worst Possible Pain Location: Right Location Body Site: Hip Pain Description: Acute Objective Patient Orientation: Person, Time, Situation Attachments: Oxygen, IV ROM/Strength ROM Lower Extremities bilateral LE WFL Strength Lower Extremities left LE 3/5 grossly/ right LE 3-/5 grossly Integumentary/Posture Bladder Incontinence: Yes Posture slightly kyphotic Neuromuscular (Tone, Coordination, Reflexes) grossly intact Sensory Vision: Functional Hearing: Hearing Aid/Aides Transfers Roll Left to Right (QC): 1 Lying to Sitting/Side of Bed(Q: 1 Sit to Stand (QC): 1 Chair/Pve-py-Iklzt Xfer(QC): 1 Attempted to perform sit to stand to FWW x 3 with patient unable to perform sit to stand to FWW requiring dependent SPT with PT Gait Does the Patient Walk?: No and Walking Goal IS indicated Mode of Locomotion: Walk Anticipated Mode of Locomotion: Walk Walk 10 feet (QC): 88 Walk 50 ft with 2 Turns(QC): 88 Walk 150 ft (QC): 88 Balance Sitting Static: Normal Sitting Dynamic: Normal Standing Static: Poor Standing Dynamic: Poor Assessment/Needs 86 y.o. male, will benefit from skilled PT to address functional strength and mobility to improve current LOF. Patient is currently dependent with all mobility due to right hip pain. Rehab Potential: Guarded PT Thermite Bomb Loader Goals Thermite Bomb Loader Goals PT Thermite Bomb Loader Goals Time Frame: Feb 16, 2022 Roll Left & Right (QC): 3 Sit to Lying (QC): 3 Lying-Sitting on Side/Bed(QC): 3 Sit to Stand (QC): 3 Chair/Wcs-av-Kwsqh Xfer(QC): 3 Toilet Transfer (QC): 3 Walk 10 feet (QC): 3 Walk 50ft with 2 Turns (QC): 3 PT Plan Problem List Problem List: Activity Tolerance, Functional Strength, Safety, Balance, Gait, Transfer, Bed Mobility Treatment/Plan Treatment Plan: Continue Plan of Care Treatment Plan: Bed Mobility, Education, Functional Activity Mario, Functional Strength, Gait, Safety, Therapeutic Exercise, Transfers Treatment Duration: Feb 16, 2022 Frequency: 11 times per week Estimated Hrs Per Day: .5 hour per day Discharge Recommendations Therapy Discharge Recommendati: Other, See Comments (ARU/long term facility?), Post Acute PT Time/GCodes Time In: 745 Time Out: 813 Total Billed Treatment Time: 28 Total Billed Treatment 1 visit EVModC 15 min FA 13 min GALDINO MACEDO PT Jan 14, 2022 09:46
[2022-01-14] MEDS ORDERED: CYANOCOBALAMIN INJ 1000 MCG/ML IM NR (10:03)
[2022-01-14] MEDS: SENNOSIDES 8.6 MG (SENOKOT) TAB PO SCH ×2 (10:06→20:34)
[2022-01-14] MEDS: DOCUSATE SODIUM 100 MG (COLACE) CAP PO SCH ×2 (10:06→20:34)
[2022-01-14] MEDS: ENOXAPARIN 40 MG/0.4 ML (LOVENOX) SYR SC SCH (10:06)
[2022-01-14] MEDS: MONTELUKAST 10 MG (SINGULAIR) TAB PO SCH (10:06)
[2022-01-14] MEDS: ASPIRIN E.C. 81 MG (ECOTRIN) TAB PO SCH (10:06)
[2022-01-14] MEDS: PANTOPRAZOLE 40 MG (PROTONIX) TAB PO SCH ×2 (10:06→20:34)
[2022-01-14] MEDS: LORATADINE (CLARITIN) 10 MG TAB PO SCH (10:06)
[2022-01-14] MEDS: BETHANECHOL 25 MG (URECHOLINE) TAB PO SCH ×3 (10:42→20:34)
[2022-01-14] MEDS ORDERED: ESCI-2 PO (10:49)
[2022-01-14] MEDS ORDERED: FLUT9.9S NS (10:49)
[2022-01-14] MEDS ORDERED: SUCR1TAB PO (10:49)
[2022-01-14] MEDS ORDERED: GABA-486 PO (10:49)
[2022-01-14] MEDS ORDERED: FURO40TA4 PO (10:49)
[2022-01-14] MEDS ORDERED: LOPE-134 PO (10:49)
[2022-01-14] MEDS ORDERED: TMSL.4C PO (10:49)
[2022-01-14] MEDS ORDERED: POTA-179 PO (10:49)
[2022-01-14] MEDS ORDERED: ACET-2267 PO (10:49)
[2022-01-14] MEDS ORDERED: FOLI1TAB33 PO (10:49)
[2022-01-14] MEDS ORDERED: TOPI50TA13 PO (10:49)
[2022-01-14] MEDS ORDERED: FERR-84 PO (10:49)
[2022-01-14] MEDS ORDERED: ASCO250T16 PO (10:49)
[2022-01-14] MEDS ORDERED: PANT40TA52 PO (10:49)
[2022-01-14] MEDS ORDERED: ALLO100T PO (10:49)
[2022-01-14] MEDS ORDERED: MTP25TSR PO (10:49)
--- NOTE | 2022-01-14 10:54 | Occupational Therapy Eval ---
OT Evaluation-General/PLF Medical Diagnosis Admission Date Jan 12, 2022 at 11:04 Medical Diagnosis: right hip fracture s/p IM nail Onset Date: Jan 12, 2022 Therapy Diagnosis Therapy Diagnosis: decreased ADL status Precautions Precautions/Isolations: Fall Prevention, Standard Precautions Weight Bear Status Weight Bearing Restriction: Weight Bearing/Tolerated Location Restriction: R LE Referral Physician: Avinash Mendoza Reason: Evaluation/Treatment Medical History Pertinent Medical History: Atrial Fib, CAD, Dementia, Heart Failure, PVD, Renal Insufficiency Additional Medical History coronary stent, pacemaker, cardiomyopathy, chronic edema/swelling, CAD, HTN, PVD, BPH, renal failure, GERD, liver abscess x2, arthritis Current History Recent stay at [facility] with abdominal pain, n/v, found to have pancreatitis, 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 Pt had discharged home, where he suffered a fall when using a urinal resulting in R hip fx, s/p IM nail 01/13/22 Social History Home: Single Level Current Living Status: Spouse Entry Into Home: Level Entry ADL-Prior Level of Function SCALE: Activities may be completed with or without assistive devices. 9-Xjnlpofjyk-utmixti completes the activity by him/herself with no assistance from a helper. 5-Set-up or Clean-up Assistance-helper sets up or cleans up; patient completes activity. [place] assists only prior to or following the activity. 4-Supervision or Touching Assistance-helper provides verbal cues and/or touching/steadying and/or contact guard assistance as patient completes activity. Assistance may be provided throughout the activity or intermittently. 3-Partial/Moderate Assistance-helper does LESS THAN HALF the effort. [place] lifts, holds or supports trunk or limbs, but provides less than half the effort. 2-Substantial/Maximal Assistance-helper does MORE THAN HALF the effort. [place] lifts or holds trunk or limbs and provides more than half the effort. 2-Obttfbsvj-jtccms does ALL the effort. Patient does none of the effort to complete the activity. Or, the assistance of 2 or more helpers is required for the patient to complete the activity. If activity was not attempted, code reason: 7-Patient Refused. 9-Not Applicable-not attempted and the patient did not perform the activity before the current illness, exacerbation or injury. 10-Not Attempted due to Environmental Limitations-(lack of equipment, weather restraints, etc.). 88-Not Attempted due to Medical Conditions or Safety Concerns. ADL PLOF Comments Pt lives with his at [facility], his son lives nearby. Pt reports he was independent with ADLs and functional mobility, using FWW. Pt typically wears depends due to diarrhea issues. Self Care: Independent Functional Cognition: Independent OT Current Status Subjective Pt up in recliner, present. Pt agreeable to OT tx. Mental Status/Objective Patient Orientation: Person, Place, Situation Current Hand Dominance: Right Upper Extremity ROM WFL Upper Extremity Strength grossly 3+/5 ADL-Treatment Eating (QC): 5 (set up with opening containers) Oral Hygiene (QC): 5 (set up, OT opened toothbrush and provided pt with supplies.) Shower/Bathe Self (QC): 1 (Per clinical judgment, assist x2 in stand required.) Lower Body Dressing (QC): 1 (Per clinical judgment, assist x2 in stand.) On/Off Footwear (QC): 1 (total assist with gripper socks.) Toileting Hygiene (QC): 1 (Per clinical judgment, assist x2) Other Treatments Pt in recliner, agreeable to OT tx. Pt provided information about PLOF and home set up. Pt able to brush his teeth and wash his face after set up assist. Pt declined out of chair activities at this time. Per PT report, pt attempted to stand x3, but unable requiring dependent SPT. Post tx, pt in recliner, call light in reach and all needs met. Education OT Patient Education: Correct positioning, Energy conservation, Modified ADL techniques, Progress toward Goal/Update tx plan, Purpose of tx/functional activities, Rehab process Teaching Recipient: Patient Teaching Methods: Discussion Response to Teaching: Verbalize Understanding OT Railroad Repairer Goals Mcc Goals Time Frame: Feb 01, 2022 Eating (QC): 6 Oral Hygiene (QC): 5 Toileting Hygiene (QC): 4 Shower/Bathe Self (QC): 3 Upper Body Dressing (QC): 5 Lower Body Dressing (QC): 3 On/Off Footwear (QC): 3 Additional Goals: 1-Demonstrate ADL Tasks, 2-Verbalize Understanding, 3- ImproveStrength/Mario 1=Demonstrate adherence to instructed precautions during ADL tasks. 2=Patient will verbalize/demonstrate understanding of assistive devices/modifications for ADL. 3=Patient will improve strength/tolerance for activity to enable patient to perform ADL's. OT Education/Plan Problem List/Assessment Assessment: Decreased Activ Tolerance, Decreased UE Strength, Dependent Transfers, Impaired Bed Mobility, Impaired Coordination, Impaired Funct Balance, Impaired I ADL's, Impaired Self-Care Skills Discharge Recommendations Plan/Recommendations: Continue POC Therapy Discharge Recommendati: Post Acute OT Treatment Plan/Plan of Care Patient would benefit from OT for education, treatment and training to promote independence in ADL's, mobility, safety and/or upper extremity function for ADL's. Plan of Care: ADL Retraining, Functional Mobility, UE Funct Exercise/Act Treatment Duration: Feb 01, 2022 Frequency: 3 times per week (3-5 times per week) Rehab Potential: Guarded Time/GCodes Start Time: 10:07 Stop Time: 10:22 Total Time Billed (hr/min): 15 Billed Treatment Time 1, CICI VILLA OT Jan 14, 2022 10:54
--- NOTE | 2022-01-14 11:13 | Progress Note ---
IRENE DIAZ 01/14/22 1113: Subjective Date Seen by a Provider: Jan 14, 2022 Time Seen by a Provider: 07:55 Subjective/Events-last exam CC: Right hip fracture HPI: This is an 86yoWM who suffered a fall at home on 01/12/2022 when he was using his urinal and has suffered a right hip fracture after [place] [facility]. Patient of Dr. Solorio. Has multiple chronic comorbitidies and medical problems that are stated in the history and physical. Dr. Cade performed surgical repair on hip on 01/13/2022. Cardiology was also consulted with the patients his tory of a pacemaker placement. Patient is considered high risk for complications before, during, and post operatively with no ability to modify his risks though risks are weighed comparing the patients immobility vs surgical complications. Patient is [place] and is at bedside. Subjective/Events-last exam: When I entered the room, patient was laying in the bed and later sitting up in the chair when rounding with Dr. Solorio. Patient is Right hip surgery POD #1 Patient reports that he is doing well overall. Has pain in his right hip. Eating and drinking fluids well. Reports still having issues with urination, dysuria and urinary incontinence. Review of Systems General: No Chills, No Night Sweats, No Fatigue HEENT: No Head Aches, No Visual Changes Cardiovascular: No: Chest Pain, Palpitations Gastrointestinal: No: Nausea, Vomiting, Diarrhea Genitourinary: Dysuria, Incontinence Musculoskeletal: other (Right hip pain) Neurological: No: Numbness, Change in speech, Confusion Objective Exam Last Set of Vital Signs Vital Signs Date Time Temp Pulse Resp B/P (MAP) Pulse Ox O2 Delivery O2 Flow Rate FiO2 01/14/22 07:30 36.8 69 18 102/59 (73) 97 Nasal Cannula 1.50 01/12/22 14:12 21 Capillary Refill : Less Than 3 Seconds I&O Intake and Output 01/14/22 00:00 Intake Total 7500 ml Output Total 675 ml Balance 6825 ml Intake Oral 850 ml IV Total 6650 ml Output Urine Total 675 ml Post Void Residual 0 ml # Voids 1 Lungs: Clear to Auscultation, Normal Air Movement Heart: Regular Rate Abdomen: Normal Bowel Sounds Extremities: Other (Right hip 1/5 strength in all directions.) Results Lab Laboratory Tests 01/14/22 05:30: White Blood Count 11.8H, Red Blood Count 3.15L, Hemoglobin 8.6L, Hematocrit 28L, Mean Corpuscular Volume 90, Mean Corpuscular Hemoglobin 27, Mean Corpuscular Hemoglobin Concent 31L, Red Cell Distribution Width 23.2H, Platelet Count 129L, Mean Platelet Volume 9.8, Immature Granulocyte % (Auto) 1, Neutrophils (%) (Auto) 89H, Lymphocytes (%) (Auto) 5L, Monocytes (%) (Auto) 5, Eosinophils (%) (Auto) 0, Basophils (%) (Auto) 0, Neutrophils # (Auto) 10.6H, Lymphocytes # (Auto) 0.6L, Monocytes # (Auto) 0.5, Eosinophils # (Auto) 0.0, Basophils # (Auto) 0.0, Immature Granulocyte # (Auto) 0.1, Neutrophils % (Manual) 91, Lymphocytes % (Manual) 7, Monocytes % (Manual) 1, Band Neutrophils 1, Percent Immature Platelet Fraction 5.4, Basophilic Stippling SLIGHT, Anisocytosis SLIGHT, Elliptocytes SLIGHT, Sodium Level 137, Potassium Level 4.1, Chloride Level 113H, Carbon Dioxide Level 15L, Anion Gap 9, Blood Urea Nitrogen 33H, Creatinine 1.51H, Estimat Glomerular Filtration Rate 45, BUN/Creatinine Ratio 22, Glucose Level 144H, Calcium Level 8.0L, Corrected Calcium 9.0, Total Bilirubin 0.5, Aspartate Amino Transf (AST/SGOT) 13, Alanine Aminotransferase (ALT/SGPT) 8, Alkaline Phosphatase 60, Total Protein 6.0L, Albumin 2.7L Microbiology 01/13/22 MRSA Screen - Final, Complete MRSA not isolated Assessment/Plan Assessment/Plan Assess & Plan/Chief Complaint Assessment: Right hip fracture status post uncomplicated repair per Dr Cade POD#0 CAD previous stents Ischemic cardiomyopathy has pacemaker placed 05/2021 CKD Recent pancreatitis last weekend amylase and lipase now 143/527 Acute UTI placed on Rocephin Urinary Incontinence, Dysuria GERD BPH Presbycusis Memory deficit Frail status Gout Depression Renal lithasis h/o hyperparathyroidism Neuropathy Polycystic kidney disease Cystic liver disease Previous liver abscess s/p drainage x 2 (1 at [place] other at [facility] in ) Anemia Plan: Dr Cruz consult Dr Cade consult Pain management Check labs in am [place] Lovenox held until after surgery Monitor hgb Gentle IVF High risk for psychosis 01/13/2022: Supportive care Haldol and Ativan if needed for delirium PT and OT tomorrow Monitor labs Rocephin for UTI Iron infusions Swing bed at [place] 01/14/2022: Supportive care PT and OT Monitor labs B12 injection and tablet Flomax, Urecholine, bladder scan for urinary incontinence Swing bed at [place] Clinical Quality Measures DVT/VTE Risk/Contraindication: Contraindications-Pharm: Other *list below* Other: or RONIT SOLORIO DO 01/15/22 0544: Subjective Subjective/Events-last exam Patient doing very well Will need swing bed at [place] Urinary output decreased so I did restart IV fluids Rocephin for UTI I did review urine culture from [place] and Rocephin is a good selection No other concerns Review of Systems General: Fatigue, Malaise Musculoskeletal: leg pain Objective Exam General: Alert, Oriented X3, Cooperative, No Acute Distress Lungs: Clear to Auscultation, Normal Air Movement Heart: Regular Rate, Normal S1, Normal S2, No Murmurs Psych/Mental Status: Mental Status NL, Mood NL Assessment/Plan Assessment/Plan Assess & Plan/Chief Complaint Assessment: Right hip fracture status post uncomplicated repair per Dr Cade POD#1 CAD previous stents Ischemic cardiomyopathy has pacemaker placed 05/2021 CKD Recent pancreatitis last weekend amylase and lipase now 143/527 Acute UTI placed on Rocephin GERD BPH Presbycusis Memory deficit Frail status Gout Depression Renal lithasis h/o hyperparathyroidism Neuropathy Polycystic kidney disease Cystic liver disease Previous liver abscess s/p drainage x 2 (1 at [place] other at [facility] in ) Anemia iron deficiency type starting iron infusions Vitamin B12 deficiency Plan: Dr Cruz consult Dr Cade consult Pain management Check labs in am [place] Lovenox held until after surgery Monitor hgb Gentle IVF High risk for psychosis 01/13/2022: Supportive care Haldol and Ativan if needed for delirium PT and OT tomorrow Monitor labs Rocephin for UTI Iron infusions Swing bed [place] at discharge 01/14/2022: Continue PT and OT Rocephin for UTI Restart IV fluids due to poor urinary output Swing bed at [place] Supervisory-Addendum Brief Verification & Attestation Participated in pt care: history, MDM, physical Personally performed: exam, history, MDM, supervision of care Care discussed with: Medical Student Procedures: n/a Results interpretation: Verified all documentation Verification and Attestation of Medical Student E/M Service A medical student performed and documented this service in my presence. I reviewed and verified all information documented by the medical student and made modifications to such information, when appropriate. I personally performed the physical exam and medical decision making. Ronit Solorio, Jan 15, 2022,05:41 IRENE DIAZ Jan 14, 2022 11:13 RONIT SOLORIO DO Jan 15, 2022 05:44
[2022-01-14] MEDS: cefTRIAXone 1 GM PRE-MIX 50 ML IV SCH (13:51)
--- NOTE | 2022-01-14 14:09 | Physical Therapy Daily Note ---
PT Daily Note-Current Subjective Patient states he doesn't want to go back to bed. Agrees to PT. Pain Numeric Pain Scale: 10-Worst Possible Pain Location: Right Location Body Site: Hip Pain Description: Acute Mental Status Patient Orientation: Normal For Age Attachments: Oxygen Transfers SCALE: Activities may be completed with or without assistive devices. 1-Feuprtintb-munbevc completes the activity by him/herself with no assistance from a helper. 5-Set-up or Clean-up Assistance-helper sets up or cleans up; patient completes activity. [place] assists only prior to or following the activity. 4-Supervision or Touching Assistance-helper provides verbal cues and/or touching/steadying and/or contact guard assistance as patient completes activity. Assistance may be provided throughout the activity or intermittently. 3-Partial/Moderate Assistance-helper does LESS THAN HALF the effort. [place] lifts, holds or supports trunk or limbs, but provides less than half the effort. 2-Substantial/Maximal Assistance-helper does MORE THAN HALF the effort. [place] lifts or holds trunk or limbs and provides more than half the effort. 5-Vqsulkmao-gymjba does ALL the effort. Patient does none of the effort to complete the activity. Or, the assistance of 2 or more helpers is required for the patient to complete the activity. If activity was not attempted, code reason: 7-Patient Refused. 9-Not Applicable-not attempted and the patient did not perform the activity before the current illness, exacerbation or injury. 10-Not Attempted due to Environmental Limitations-(lack of equipment, weather restraints, etc.). 88-Not Attempted due to Medical Conditions or Safety Concerns. Sit to Stand (QC): 1 (x 2 - x 4 sets to FWW with VC's to stand erect and to lock right knees) Weight Bearing Right Lower Extremity: Right Weight Bearing/Tolerated Left Lower Extremity: Left Full Weight Bearing Gait Training Distance: 10' Walk 10 feet (QC): 1 (x 2 with VC's to stand erect and to weight bear right LE and bilateral UE's) Gait Assistive Device: FWW Exercises Supine Ex: Ankle pumps, Quad Set Supine Reps: 12 Seated Therapy Exercises: Long arc quads Seated Reps: 15 Assessment Patient progressing with treatment plan. Patient is max assist of 2 with all mobility for safety. Patient has difficulty weight bearing right LE. PT Fdc Goals Rn Neurosurgical Goals PT Fdc Goals Time Frame: Feb 16, 2022 Roll Left & Right (QC): 3 Sit to Lying (QC): 3 Lying-Sitting on Side/Bed(QC): 3 Sit to Stand (QC): 3 Chair/Thx-ma-Vmlyu Xfer(QC): 3 Toilet Transfer (QC): 3 Walk 10 feet (QC): 3 Walk 50ft with 2 Turns (QC): 3 PT Plan Treatment/Plan Treatment Plan: Continue Plan of Care Treatment Plan: Bed Mobility, Education, Functional Activity Mario, Functional Strength, Gait, Safety, Therapeutic Exercise, Transfers Treatment Duration: Feb 16, 2022 Frequency: 11 times per week Estimated Hrs Per Day: .5 hour per day Time/GCodes Time In: 1303 Time Out: 1327 Total Billed Treatment Time: 24 Total Billed Treatment 1 visit EX 10 min GT 14 min GALDINO MACEDO PT Jan 14, 2022 14:09
[2022-01-14] MEDS ORDERED: NS IV 1000 ML 1,000 ML ONE (17:07)
[2022-01-14] MEDS: fentaNYL INJ 100 MCG/2 ML AMP IVP PRN (17:27)
[2022-01-14] MEDS: TAMSULOSIN 0.4 MG (FLOMAX) CAP PO SCH (20:34)
[2022-01-15] VITALS (8 sets, daily range): BP systolic 101–113; BP diastolic 55–63
[2022-01-15 05:42] LABS: BASOPHILS # (AUTO) 0.1 10^3/uL (0.0-0.1); BASOPHILS % (AUTO) 1 % (0-10); HEMOGLOBIN 7.6 g/dL (13.3-17.7); MEAN PLATELET VOLUME 10.6 fL (9.0-12.2)
[2022-01-15 05:43] LABS: EOSINOPHILS # (AUTO) 0.1 10^3/uL (0.0-0.3); EOSINOPHILS % (AUTO) 2 % (0-10); HEMATOCRIT 25 % (40-54); LYMPHOCYTES % (AUTO) 12 % (12-44); MEAN CORPUSCULAR HEMOGLOBIN 28 pg (25-34); MEAN CORPUSCULAR HGB CONC 31 g/dL (32-36); MEAN CORPUSCULAR VOLUME 90 fL (80-99); MONOCYTES # (AUTO) 0.6 10^3/uL (0.0-1.0); MONOCYTES % (AUTO) 7 % (0-12); NEUTROPHILS # (AUTO) 6.4 10^3/uL (1.8-7.8); NEUTROPHILS % (AUTO) 77 % (42-75); PLATELET COUNT 121 10^3/uL (130-400); WHITE BLOOD COUNT 8.3 10^3/uL (4.3-11.0)
[2022-01-15 06:08] LABS: ALBUMIN 2.5 GM/DL (3.2-4.5); CHLORIDE 112 MMOL/L (98-107); POTASSIUM 3.8 MMOL/L (3.6-5.0); SODIUM 136 MMOL/L (135-145)
[2022-01-15 06:10] LABS: CALCIUM 8.3 MG/DL (8.5-10.1)
[2022-01-15 06:11] LABS: GLUCOSE 109 MG/DL (70-105); TOTAL PROTEIN 5.3 GM/DL (6.4-8.2)
[2022-01-15 06:12] LABS: CARBON DIOXIDE 17 MMOL/L (21-32)
[2022-01-15 06:13] LABS: BILIRUBIN,TOTAL 0.4 MG/DL (0.1-1.0)
[2022-01-15 06:14] LABS: ALKALINE PHOSPHATASE 58 U/L (40-136); CREATININE SERUM 1.29 MG/DL (0.60-1.30); GFR ESTIMATED 54
[2022-01-15 06:15] LABS: BUN/CREATININE RATIO 24
[2022-01-15 06:17] LABS: ALANINE AMINOTRANSFERASE < 6 U/L (0-55)
[2022-01-15] MEDS: NS IV 1000 ML 1,000 ML IV SCH (06:17)
[2022-01-15] MEDS: BETHANECHOL 25 MG (URECHOLINE) TAB PO SCH ×4 (06:18→21:12)
[2022-01-15] MEDS: SUCRALFATE 1 GM (CARAFATE) TAB PO SCH ×4 (06:19→21:12)
[2022-01-15] MEDS: CYANOCOBALAMIN 1,000 MCG (VITAMIN B-12) TABLET PO SCH (06:19)
[2022-01-15] MEDS ORDERED: NS IV 500 ML 500 ML IV SCH (06:45)
--- NOTE | 2022-01-15 06:59 | Progress Note ---
Standard Progress Note Progress Notes/Assess & Plan Date Seen by a Provider: Jan 15, 2022 Time Seen by a Provider: 06:57 Progress/Assessment & Plan sitting on edge of bed with PT Vital Signs Date Time Temp Pulse Resp B/P (MAP) Pulse Ox O2 Delivery O2 Flow Rate FiO2 01/14/22 07:30 36.8 69 18 102/59 (73) 97 Nasal Cannula 1.50 01/14/22 04:00 37.0 71 18 109/55 (73) 97 Room Air 01/14/22 01:00 73 01/14/22 00:00 36.1 70 19 101/61 (74) 97 Nasal Cannula 1.50 01/13/22 20:57 Room Air 01/13/22 20:40 70 01/13/22 19:32 36.4 71 18 99/58 (72) 97 Nasal Cannula 1.50 01/13/22 19:00 70 01/13/22 16:00 36.4 69 20 103/59 (74) 98 Nasal Cannula 3.00 01/13/22 12:53 70 01/13/22 12:00 37.0 71 16 102/58 (73) 96 Room Air 01/13/22 10:37 37.0 71 16 97/55 (69) 3.00 01/13/22 10:36 96 Nasal Cannula 2.00 01/13/22 10:06 Nasal Cannula 01/13/22 09:50 36.3 20 105/62 (76) 97 Nasal Cannula 3 01/13/22 09:50 Nasal Cannula 3 01/13/22 09:45 Nasal Cannula 3 01/13/22 09:40 20 105/60 (75) 96 Nasal Cannula 3 01/13/22 09:30 Room Air 01/13/22 09:30 20 96/58 (71) 96 Nasal Cannula 3 01/13/22 09:20 20 107/58 (74) 95 OxyMask 3 01/13/22 09:15 OxyMask 5 01/13/22 09:10 20 110/64 (79) 99 OxyMask 5 01/13/22 09:00 OxyMask 5 01/13/22 09:00 20 111/63 (79) 99 OxyMask 5 01/13/22 08:50 20 110/62 (78) 99 OxyMask 6 01/13/22 08:46 36.2 20 110/64 (79) 99 OxyMask 6 01/13/22 08:46 OxyMask 6 I & O 01/14/22 07:00 Intake Total 7150 ml Output Total 425 ml Balance 6725 ml Laboratory Tests Test 01/14/22 05:30 Range/Units White Blood Count 11.8 H 4.3-11.0 10^3/uL Red Blood Count 3.15 L 4.30-5.52 10^6/uL Hemoglobin 8.6 L 13.3-17.7 g/dL Hematocrit 28 L 40-54 % Mean Corpuscular Volume 90 80-99 fL Mean Corpuscular Hemoglobin 27 25-34 pg Mean Corpuscular Hemoglobin Concent 31 L 32-36 g/dL Red Cell Distribution Width 23.2 H 10.0-14.5 % Platelet Count 129 L 130-400 10^3/uL Mean Platelet Volume 9.8 9.0-12.2 fL Immature Granulocyte % (Auto) 1 % Neutrophils (%) (Auto) 89 H 42-75 % Lymphocytes (%) (Auto) 5 L 12-44 % Monocytes (%) (Auto) 5 0-12 % Eosinophils (%) (Auto) 0 0-10 % Basophils (%) (Auto) 0 0-10 % Neutrophils # (Auto) 10.6 H 1.8-7.8 10^3/uL Lymphocytes # (Auto) 0.6 L 1.0-4.0 10^3/uL Monocytes # (Auto) 0.5 0.0-1.0 10^3/uL Eosinophils # (Auto) 0.0 0.0-0.3 10^3/uL Basophils # (Auto) 0.0 0.0-0.1 10^3/uL Immature Granulocyte # (Auto) 0.1 0.0-0.1 10^3/uL Neutrophils % (Manual) 91 % Lymphocytes % (Manual) 7 % Monocytes % (Manual) 1 % Band Neutrophils 1 % Percent Immature Platelet Fraction 5.4 0.0-7.6 % Basophilic Stippling SLIGHT Anisocytosis SLIGHT Elliptocytes SLIGHT Sodium Level 137 135-145 MMOL/L Potassium Level 4.1 3.6-5.0 MMOL/L Chloride Level 113 H 98-107 MMOL/L Carbon Dioxide Level 15 L 21-32 MMOL/L Anion Gap 9 5-14 MMOL/L Blood Urea Nitrogen 33 H 7-18 MG/DL Creatinine 1.51 H 0.60-1.30 MG/DL Estimat Glomerular Filtration Rate 45 BUN/Creatinine Ratio 22 Glucose Level 144 H 70-105 MG/DL Calcium Level 8.0 L 8.5-10.1 MG/DL Corrected Calcium 9.0 8.5-10.1 MG/DL Total Bilirubin 0.5 0.1-1.0 MG/DL Aspartate Amino Transf (AST/SGOT) 13 5-34 U/L Alanine Aminotransferase (ALT/SGPT) 8 0-55 U/L Alkaline Phosphatase 60 40-136 U/L Total Protein 6.0 L 6.4-8.2 GM/DL Albumin 2.7 L 3.2-4.5 GM/DL R hip dressing intact intact DF and PF of toes and ankle s/p R hip IM angela PT IRU vs [place]? Final Diagnosis no complaints Vital Signs Date Time Temp Pulse Resp B/P (MAP) Pulse Ox O2 Delivery O2 Flow Rate FiO2 01/15/22 04:18 36.9 82 16 102/56 (71) 97 Nasal Cannula 1.50 01/15/22 01:00 71 01/14/22 23:15 36.8 70 16 98/56 (70) 98 Nasal Cannula 1.50 01/14/22 20:20 Room Air 01/14/22 20:16 36.9 90 16 102/59 (73) 93 Nasal Cannula 1.50 01/14/22 19:00 70 01/14/22 16:00 36.6 71 16 103/57 (72) 97 Nasal Cannula 1.50 01/14/22 13:00 71 01/14/22 11:44 36.6 69 18 107/68 (81) 97 Nasal Cannula 1.50 01/14/22 08:00 Room Air 01/14/22 07:30 36.8 69 18 102/59 (73) 97 Nasal Cannula 1.50 01/14/22 07:00 69 l I & O 01/15/22 06:59 Intake Total 4820 ml Output Total 1075 ml Balance 3745 ml Laboratory Tests Test 01/15/22 05:23 Range/Units White Blood Count 8.3 4.3-11.0 10^3/uL Red Blood Count 2.76 L 4.30-5.52 10^6/uL Hemoglobin 7.6 L 13.3-17.7 g/dL Hematocrit 25 L 40-54 % Mean Corpuscular Volume 90 80-99 fL Mean Corpuscular Hemoglobin 28 25-34 pg Mean Corpuscular Hemoglobin Concent 31 L 32-36 g/dL Red Cell Distribution Width 23.3 H 10.0-14.5 % Platelet Count 121 L 130-400 10^3/uL Mean Platelet Volume 10.6 9.0-12.2 fL Immature Granulocyte % (Auto) 1 % Neutrophils (%) (Auto) 77 H 42-75 % Lymphocytes (%) (Auto) 12 12-44 % Monocytes (%) (Auto) 7 0-12 % Eosinophils (%) (Auto) 2 0-10 % Basophils (%) (Auto) 1 0-10 % Neutrophils # (Auto) 6.4 1.8-7.8 10^3/uL Lymphocytes # (Auto) 1.0 1.0-4.0 10^3/uL Monocytes # (Auto) 0.6 0.0-1.0 10^3/uL Eosinophils # (Auto) 0.1 0.0-0.3 10^3/uL Basophils # (Auto) 0.1 0.0-0.1 10^3/uL Immature Granulocyte # (Auto) 0.1 0.0-0.1 10^3/uL Percent Immature Platelet Fraction 5.3 0.0-7.6 % Sodium Level 136 135-145 MMOL/L Potassium Level 3.8 3.6-5.0 MMOL/L Chloride Level 112 H 98-107 MMOL/L Carbon Dioxide Level 17 L 21-32 MMOL/L Anion Gap 7 5-14 MMOL/L Blood Urea Nitrogen 31 H 7-18 MG/DL Creatinine 1.29 0.60-1.30 MG/DL Estimat Glomerular Filtration Rate 54 BUN/Creatinine Ratio 24 Glucose Level 109 H 70-105 MG/DL Calcium Level 8.3 L 8.5-10.1 MG/DL Corrected Calcium 9.5 8.5-10.1 MG/DL Total Bilirubin 0.4 0.1-1.0 MG/DL Aspartate Amino Transf (AST/SGOT) 10 5-34 U/L Alanine Aminotransferase (ALT/SGPT) < 6 0-55 U/L Alkaline Phosphatase 58 40-136 U/L Total Protein 5.3 L 6.4-8.2 GM/DL Albumin 2.5 L 3.2-4.5 GM/DL R hip incisions clean and dry no calf tenderness. Neg Felicitas's s/p R hip IM angela disposition per Dr Avinash beauchamp PT/OT JENNA PHILLIPS MD Jan 15, 2022 06:59
[2022-01-15] MEDS ORDERED: FUROSEMIDE 40 MG/4 ML INJ (LASIX) IVP NR (07:00)
[2022-01-15] MEDS: MONTELUKAST 10 MG (SINGULAIR) TAB PO SCH (08:43)
[2022-01-15] MEDS: DOCUSATE SODIUM 100 MG (COLACE) CAP PO SCH ×2 (08:43→21:12)
[2022-01-15] MEDS: LORATADINE (CLARITIN) 10 MG TAB PO SCH (08:44)
[2022-01-15] MEDS: SENNOSIDES 8.6 MG (SENOKOT) TAB PO SCH ×2 (08:44→21:12)
[2022-01-15] MEDS: HYDROcodone/APAP 5 MG/325 MG (LORTAB) TAB PO PRN ×2 (08:44→15:52)
[2022-01-15] MEDS: PANTOPRAZOLE 40 MG (PROTONIX) TAB PO SCH ×2 (08:44→21:12)
[2022-01-15] MEDS: ASPIRIN E.C. 81 MG (ECOTRIN) TAB PO SCH (08:44)
[2022-01-15] MEDS: TAMSULOSIN 0.4 MG (FLOMAX) CAP PO SCH ×2 (08:44→21:12)
--- NOTE | 2022-01-15 08:45 | Cardiology Progress Note ---
Subjective Date Seen by Provider: Jan 15, 2022 Time Seen by Provider: 08:44 Subjective/Events-last exam Patient is laying down in bed, complaining of leg pain. No chest pain Review of Systems General: No Chills, No Night Sweats; Fatigue, Malaise; No Appetite, No Other HEENT: No Head Aches, No Visual Changes, No Eye Pain, No Ear Pain, No Dysphasia, No Sinus Congestion, No Post Nasal Drip, No Sore Throat, No Other Pulmonary: Dyspnea; No Cough, No Pleuritic Chest Pain, No Other Cardiovascular: No: Chest Pain, Palpitations, Orthopnea, Paroxysmal Noc. Dyspnea, Edema, Lt Headedness, Other Objective-Cardiology Exam Last Set of Vital Signs Vital Signs 01/12/22 01/15/22 14:12 07:24 Temp 36.4 Pulse 70 Resp 20 B/P (MAP) 106/56 (73) Pulse Ox 99 O2 Delivery Nasal Cannula O2 Flow Rate 1.50 FiO2 21 I&O Intake and Output 01/15/22 00:00 Intake Total 4320 ml Output Total 600 ml Balance 3720 ml Intake Oral 1270 ml IV Total 3050 ml Output Urine Total 600 ml # Voids 5 General: Alert, Oriented X3, Cooperative, No Acute Distress HEENT: Atraumatic, PERRLA Neck: Supple, No JVD, No Thyromegaly Lungs: Clear to Auscultation, Normal Air Movement Heart: Regular Rate, Normal S1, Normal S2, No Murmurs Abdomen: Normal Bowel Sounds Extremities: No Clubbing, No Cyanosis, Other (Right hip 1/5 strength in all directions.) Skin: No Rashes, No Significant Lesion Neuro: Normal Speech, Normal Tone, Sensation Intact Psych/Mental Status: Mental Status NL, Mood NL Results Lab Laboratory Tests 01/15/22 05:23 A/P-Cardiology Admission Diagnosis Hip fracture Coronary artery disease Congestive heart failure, chronic compensated left ventricular systolic dysfunction Hypertension Assessment/Plan Right hip fracture, underwent right hip nail surgery, done on January 14, 2012 Recovering slowly. Doing well. Coronary artery disease, history of cardiac catheterization and stent in 2005, no recent stenting was done, has been following with a hyperion administrator in [place]. Moved to this area recently. Congestive heart failure, chronic compensated left ventricular systolic dysfunction, ejection fraction 30 to 35%. History of mitral regurgitation tricuspid regurgitation, mild aortic stenosis noted on echo. Paroxysmal atrial fibrillation, intolerant to anticoagulation secondary to GI bleed. 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 Patient has BiV pacemaker, [employer] device. Continue to monitor Chronic kidney disease stage III-IV, following with primary care physician Hypertension, controlled, continue to monitor blood pressure Hyperlipidemia, monitor lipids History of heparin induced thrombocytopenia, monitor platelets closely. History of GI bleed, peptic ulcer disease, intolerant to aggressive anticoagulation. History of pancreatitis, resolved recently History of parathyroid adenoma, cholecystectomy, liver abscess and drainage, hernia surgery, gouty arthritis. Peptic ulcer disease NGUYEN BELL MD Jan 15, 2022 08:45
[2022-01-15] MEDS: ENOXAPARIN 40 MG/0.4 ML (LOVENOX) SYR SC SCH (08:50)
[2022-01-15] MEDS ORDERED: IRON SUCROSE 200 MG/10 ML (VENOFER) VIAL IV SCH (09:00)
--- NOTE | 2022-01-15 09:36 | Physical Therapy Daily Note ---
PT Daily Note-Current Subjective Patient agrees to PT. Pain Numeric Pain Scale: 10-Worst Possible Pain Location: Right Location Body Site: Hip Pain Description: Acute Comment: with meds issued Mental Status Patient Orientation: Normal For Age Attachments: Oxygen, IV Transfers SCALE: Activities may be completed with or without assistive devices. 6-Ladtvojfhn-wafrgnk completes the activity by him/herself with no assistance from a helper. 5-Set-up or Clean-up Assistance-helper sets up or cleans up; patient completes activity. [place] assists only prior to or following the activity. 4-Supervision or Touching Assistance-helper provides verbal cues and/or touching/steadying and/or contact guard assistance as patient completes activity. Assistance may be provided throughout the activity or intermittently. 3-Partial/Moderate Assistance-helper does LESS THAN HALF the effort. [place] lifts, holds or supports trunk or limbs, but provides less than half the effort. 2-Substantial/Maximal Assistance-helper does MORE THAN HALF the effort. [place] lifts or holds trunk or limbs and provides more than half the effort. 4-Xylxxnwdb-lntkhi does ALL the effort. Patient does none of the effort to complete the activity. Or, the assistance of 2 or more helpers is required for the patient to complete the activity. If activity was not attempted, code reason: 7-Patient Refused. 9-Not Applicable-not attempted and the patient did not perform the activity before the current illness, exacerbation or injury. 10-Not Attempted due to Environmental Limitations-(lack of equipment, weather restraints, etc.). 88-Not Attempted due to Medical Conditions or Safety Concerns. Lying to Sitting/Side of Bed(Q: 2 Sit to Stand (QC): 2 (x 3 sets to FWW with standing x 1 min each and recovery period between sets) Chair/Cye-zv-Gwrvo Xfer(QC): 2 Weight Bearing Right Lower Extremity: Right Weight Bearing/Tolerated Left Lower Extremity: Left Full Weight Bearing Gait Training Does the Patient Walk?: No and Walking Goal IS indicated Gait Assistive Device: FWW Exercises Supine Ex: Ankle pumps, Quad Set, Heel Slides, Straight leg raise Supine Reps: 12 (AAROM) Seated Therapy Exercises: Long arc quads Seated Reps: 12 (AROM) Assessment Patient unable to advance right LE or weight bear to advance left LE this a.m. Patient up in recliner with needs met. Increase activity as tolerated by patient. PT Popcorn Candy Maker Goals Chcf Goals PT Chcf Goals Time Frame: Feb 16, 2022 Roll Left & Right (QC): 3 Sit to Lying (QC): 3 Lying-Sitting on Side/Bed(QC): 3 Sit to Stand (QC): 3 Chair/Mwv-ai-Tbwzc Xfer(QC): 3 Toilet Transfer (QC): 3 Walk 10 feet (QC): 3 Walk 50ft with 2 Turns (QC): 3 PT Plan Treatment/Plan Treatment Plan: Continue Plan of Care Treatment Plan: Bed Mobility, Education, Functional Activity Mario, Functional Strength, Gait, Safety, Therapeutic Exercise, Transfers Treatment Duration: Feb 16, 2022 Frequency: 11 times per week Estimated Hrs Per Day: .5 hour per day Time/GCodes Time In: 800 Time Out: 823 Total Billed Treatment Time: 23 Total Billed Treatment 1 visit FA 10 min EX 13 min GALDINO MACEDO PT Jan 15, 2022 09:36
--- NOTE | 2022-01-15 10:30 | Occupational Ther Daily Note ---
OT Current Status-Daily Note Subjective Pt alert, sitting in recliner. Pt adamantly refused to do any movement or ADLs today. Continued to encourage pt to participate in therapy. Pt c/o R hip pain. Mental Status/Objective Patient Orientation: Person, Place, Time, Situation Attachments: IV ADL-Treatment Therapy Code Descriptions/Definitions Functional [place] Measure: 0=Not Assessed/NA 4=Minimal Assistance 1=Total Assistance 5=Supervision or Setup 2=Maximal Assistance 6=Modified [place] 3=Moderate Assistance 7=Complete IndependenceSCALE: Activities may be completed with or without assistive devices. 2-Okvumjqwsm-pjofran completes the activity by him/herself with no assistance from a helper. 5-Set-up or Clean-up Assistance-helper sets up or cleans up; patient completes activity. [place] assists only prior to or following the activity. 4-Supervision or Touching Assistance-helper provides verbal cues and/or touching/steadying and/or contact guard assistance as patient completes activity. Assistance may be provided throughout the activity or intermittently. 3-Partial/Moderate Assistance-helper does LESS THAN HALF the effort. [place] lifts, holds or supports trunk or limbs, but provides less than half the effort. 2-Substantial/Maximal Assistance-helper does MORE THAN HALF the effort. [place] lifts or holds trunk or limbs and provides more than half the effort. 2-Mrmxbkoxp-cxxldo does ALL the effort. Patient does none of the effort to complete the activity. Or, the assistance of 2 or more helpers is required for the patient to complete the activity. If activity was not attempted, code reason: 7-Patient Refused. 9-Not Applicable-not attempted and the patient did not perform the activity before the current illness, exacerbation or injury. 10-Not Attempted due to Environmental Limitations-(lack of equipment, weather restraints, etc.). 88-Not Attempted due to Medical Conditions or Safety Concerns. Other Treatment Pt able to lean forward in chair then assist x2 to scoot pt back into chair. Pt c/o about how his leg will not work the way he wants it too. Pt declined to complete any further therapy at this time. After session, pt sitting in recliner with call light/phone in reach. present in room. All needs met in room. OT Electrical Automation Engineer Goals Senior Care Goals Time Frame: Feb 01, 2022 Eating (QC): 6 Oral Hygiene (QC): 5 Toileting Hygiene (QC): 4 Shower/Bathe Self (QC): 3 Upper Body Dressing (QC): 5 Lower Body Dressing (QC): 3 On/Off Footwear (QC): 3 Additional Goals: 1-Demonstrate ADL Tasks, 2-Verbalize Understanding, 3- ImproveStrength/Mario 1=Demonstrate adherence to instructed precautions during ADL tasks. 2=Patient will verbalize/demonstrate understanding of assistive devices/modifications for ADL. 3=Patient will improve strength/tolerance for activity to enable patient to perform ADL's. OT Education/Plan Problem List/Assessment Assessment: Decreased Activ Tolerance, Decreased UE Strength, Impaired Self- Care Skills Discharge Recommendations Plan/Recommendations: Continue POC Treatment Plan/Plan of Care Patient would benefit from OT for education, treatment and training to promote independence in ADL's, mobility, safety and/or upper extremity function for ADL's. Plan of Care: ADL Retraining, Functional Mobility, UE Funct Exercise/Act Treatment Duration: Feb 01, 2022 Frequency: 3 times per week (3-5 times per week) Rehab Potential: Guarded Time/GCodes Start Time: 10:10 Stop Time: 10:26 Total Time Billed (hr/min): 16 Billed Treatment Time 1 visit-FA 1 (16 min) GERRY LANDRUM Jan 15, 2022 10:30
--- NOTE | 2022-01-15 10:36 | Progress Note ---
IRENE DIAZ 01/15/22 1036: Subjective Date Seen by a Provider: Jan 15, 2022 Time Seen by a Provider: 09:00 Subjective/Events-last exam CC: Right hip fracture HPI: This is an 86yoWM who suffered a fall at home on 01/12/2022 when he was using his urinal and has suffered a right hip fracture after assessed in [facility]. Patient of Dr. Solorio. Has multiple chronic comorbitidies and medical problems that are stated in the history and physical. Dr. Cade performed surgical repair on hip on 01/13/2022. Cardiology was also consulted with the patients his tory of a pacemaker placement. Patient is considered high risk for complications before, during, and post operatively with no ability to modify his risks though risks are weighed comparing the patients immobility vs surgical complications. Patient is [employer] [place] and is at bedside. Subjective/Events-last exam: Patient sitting in chair when I visited. Did a little physical therapy today but stopped due to nausea, did not vomit. Patient is Right hip surgery POD #2 Patient reports that he is doing well overall. Has pain in his right hip. Eating and drinking fluids well. Urinating better and not having dysuria. Review of Systems General: No Chills, No Night Sweats, No Fatigue HEENT: No Head Aches, No Visual Changes Pulmonary: No Dyspnea, No Cough Cardiovascular: No: Chest Pain, Palpitations Gastrointestinal: No: Nausea, Vomiting, Abdominal Pain, Diarrhea Genitourinary: No Dysuria, No Incontinence Musculoskeletal: other (Right hip weakness) Neurological: No: Numbness, Change in speech Objective Exam Last Set of Vital Signs Vital Signs Date Time Temp Pulse Resp B/P (MAP) Pulse Ox O2 Delivery O2 Flow Rate FiO2 01/15/22 10:29 36.6 56 18 102/62 Nasal Cannula 2.00 01/15/22 07:24 99 01/12/22 14:12 21 Capillary Refill : Less Than 3 Seconds I&O Intake and Output 01/15/22 00:00 Intake Total 4320 ml Output Total 600 ml Balance 3720 ml Intake Oral 1270 ml IV Total 3050 ml Output Urine Total 600 ml # Voids 5 Lungs: Clear to Auscultation, Normal Air Movement Heart: Regular Rate Extremities: Other (Right hip strength 1/5 in all directions.) Results Lab Laboratory Tests 01/15/22 05:23: White Blood Count 8.3, Red Blood Count 2.76L, Hemoglobin 7.6L, Hematocrit 25L, Mean Corpuscular Volume 90, Mean Corpuscular Hemoglobin 28, Mean Corpuscular Hemoglobin Concent 31L, Red Cell Distribution Width 23.3H, Platelet Count 121L, Mean Platelet Volume 10.6, Immature Granulocyte % (Auto) 1, Neutrophils (%) (Auto) 77H, Lymphocytes (%) (Auto) 12, Monocytes (%) (Auto) 7, Eosinophils (%) (Auto) 2, Basophils (%) (Auto) 1, Neutrophils # (Auto) 6.4, Lymphocytes # (Auto) 1.0, Monocytes # (Auto) 0.6, Eosinophils # (Auto) 0.1, Basophils # (Auto) 0.1, Immature Granulocyte # (Auto) 0.1, Percent Immature Platelet Fraction 5.3, Sodium Level 136, Potassium Level 3.8, Chloride Level 112H, Carbon Dioxide Level 17L, Anion Gap 7, Blood Urea Nitrogen 31H, Creatinine 1.29, Estimat Glomerular Filtration Rate 54, BUN/Creatinine Ratio 24, Glucose Level 109H, Calcium Level 8.3L, Corrected Calcium 9.5, Total Bilirubin 0.4, Aspartate Amino Transf (AST/SGOT) 10, Alanine Aminotransferase (ALT/SGPT) < 6, Alkaline Phosphatase 58, Total Protein 5.3L, Albumin 2.5L Microbiology 01/13/22 MRSA Screen - Final, Complete MRSA not isolated Assessment/Plan Assessment/Plan Assess & Plan/Chief Complaint Assessment: Right hip fracture status post uncomplicated repair per Dr Cade POD#2 CAD previous stents Ischemic cardiomyopathy has pacemaker placed 05/2021 CKD Recent pancreatitis last weekend amylase and lipase now 143/527 Acute UTI placed on Rocephin Urinary Incontinence, Dysuria GERD BPH Presbycusis Memory deficit Frail status Gout Depression Renal lithasis h/o hyperparathyroidism Neuropathy Polycystic kidney disease Cystic liver disease Previous liver abscess s/p drainage x 2 (1 at [place] other at [facility] in ) Anemia Plan: Dr Cruz consult Dr Cade consult Pain management Check labs in am [place] Lovenox held until after surgery Monitor hgb Gentle IVF High risk for psychosis 01/13/2022: Supportive care Haldol and Ativan if needed for delirium PT and OT tomorrow Monitor labs Rocephin for UTI Iron infusions Swing bed at [place] 01/14/2022: Supportive care PT and OT Monitor labs B12 injection and tablet Flomax, Urecholine, bladder scan for urinary incontinence Rocephin for UTI Restart IV fluids due to poor urinary output Swing bed at [place] 01/15/2022: Supportive care PT and OT Blood transfusion- Hgb 7.6 on 01/15 Swingbed at [place] Clinical Quality Measures DVT/VTE Risk/Contraindication: Contraindications-Pharm: Other *list below* Other: or RONIT SOLORIO DO 01/16/22 0633: Subjective Subjective/Events-last exam Patient doing well Transfusion necessary Iron infusions and B12 maintained No BM yet Voiding well Creat good HLIVF SB GMC Objective Exam General: Alert, Oriented X3, Cooperative, No Acute Distress Lungs: Clear to Auscultation, Normal Air Movement Heart: Regular Rate, Normal S1, Normal S2, No Murmurs Psych/Mental Status: Mental Status NL, Mood NL Assessment/Plan Assessment/Plan Assess & Plan/Chief Complaint Supportive care Monitor hgb Supervisory-Addendum Brief Verification & Attestation Participated in pt care: history, MDM, physical Personally performed: exam, history, MDM, supervision of care Care discussed with: Medical Student Procedures: n/a Results interpretation: Verified all documentation Verification and Attestation of Medical Student E/M Service A medical student performed and documented this service in my presence. I reviewed and verified all information documented by the medical student and made modifications to such information, when appropriate. I personally performed the physical exam and medical decision making. Ronit Solorio Jan 16, 2022,06:32 IRENE DIAZ Jan 15, 2022 10:36 RONIT SOLORIO DO Jan 16, 2022 06:33
[2022-01-15] MEDS: cefTRIAXone 1 GM PRE-MIX 50 ML IV SCH (13:12)
--- NOTE | 2022-01-15 13:34 | Physical Therapy Daily Note ---
PT Daily Note-Current Subjective Patient agrees to PT. Requests to return to bed. Pain Numeric Pain Scale: 10-Worst Possible Pain Location: Right Location Body Site: Hip Pain Description: Acute Mental Status Patient Orientation: Normal For Age Attachments: IV Transfers SCALE: Activities may be completed with or without assistive devices. 7-Ovsrowfvqh-druyrtq completes the activity by him/herself with no assistance from a helper. 5-Set-up or Clean-up Assistance-helper sets up or cleans up; patient completes activity. [place] assists only prior to or following the activity. 4-Supervision or Touching Assistance-helper provides verbal cues and/or touching/steadying and/or contact guard assistance as patient completes activity. Assistance may be provided throughout the activity or intermittently. 3-Partial/Moderate Assistance-helper does LESS THAN HALF the effort. [place] lifts, holds or supports trunk or limbs, but provides less than half the effort. 2-Substantial/Maximal Assistance-helper does MORE THAN HALF the effort. [place] lifts or holds trunk or limbs and provides more than half the effort. 2-Raypegqcp-yvrsmj does ALL the effort. Patient does none of the effort to complete the activity. Or, the assistance of 2 or more helpers is required for the patient to complete the activity. If activity was not attempted, code reason: 7-Patient Refused. 9-Not Applicable-not attempted and the patient did not perform the activity before the current illness, exacerbation or injury. 10-Not Attempted due to Environmental Limitations-(lack of equipment, weather restraints, etc.). 88-Not Attempted due to Medical Conditions or Safety Concerns. Sit to Lying (QC): 1 Sit to Stand (QC): 1 (x 2) Chair/Eoe-qc-Omoei Xfer(QC): 1 (x 2) Weight Bearing Right Lower Extremity: Right Weight Bearing/Tolerated Left Lower Extremity: Left Full Weight Bearing Exercises Supine Ex: Ankle pumps, Quad Set, Heel Slides Supine Reps: 12 Seated Therapy Exercises: Ankle pumps, Long arc quads Seated Reps: 12 Assessment Patient requires time to complete all functional tasks. Patient returned to bed with needs met. Plan dismissal to [facility] tomorrow per report. PT Intermediate Goals Intermediate Goals PT Intermediate Goals Time Frame: Feb 16, 2022 Roll Left & Right (QC): 3 Sit to Lying (QC): 3 Lying-Sitting on Side/Bed(QC): 3 Sit to Stand (QC): 3 Chair/Fyp-qm-[place]rme Xfer(QC): 3 Toilet Transfer (QC): 3 Walk 10 feet (QC): 3 Walk 50ft with 2 Turns (QC): 3 PT Plan Treatment/Plan Treatment Plan: Continue Plan of Care Treatment Plan: Bed Mobility, Education, Functional Activity Mario, Functional Strength, Gait, Safety, Therapeutic Exercise, Transfers Treatment Duration: Feb 16, 2022 Frequency: 11 times per week Estimated Hrs Per Day: .5 hour per day Time/GCodes Time In: 1310 Time Out: 1323 Total Billed Treatment Time: 13 Total Billed Treatment 1 visit FA 13 min GALDINO MACEDO PT Jan 15, 2022 13:34
[2022-01-16 00:10] VITALS: BP 108/56
[2022-01-16] MEDS: HYDROcodone/APAP 5 MG/325 MG (LORTAB) TAB PO PRN ×3 (00:47→10:55)
[2022-01-16 04:25] VITALS: BP 115/62
[2022-01-16 05:37] LABS: BASOPHILS % (AUTO) 1 % (0-10); MEAN CORPUSCULAR VOLUME 88 fL (80-99)
[2022-01-16 05:39] LABS: EOSINOPHILS # (AUTO) 0.1 10^3/uL (0.0-0.3); EOSINOPHILS % (AUTO) 1 % (0-10); HEMATOCRIT 26 % (40-54); HEMOGLOBIN 8.2 g/dL (13.3-17.7); LYMPHOCYTES # (AUTO) 0.9 10^3/uL (1.0-4.0); LYMPHOCYTES % (AUTO) 12 % (12-44); MEAN CORPUSCULAR HEMOGLOBIN 27 pg (25-34); MEAN CORPUSCULAR HGB CONC 31 g/dL (32-36); MEAN PLATELET VOLUME 10.6 fL (9.0-12.2); MONOCYTES # (AUTO) 0.6 10^3/uL (0.0-1.0); MONOCYTES % (AUTO) 9 % (0-12); NEUTROPHILS # (AUTO) 5.2 10^3/uL (1.8-7.8); NEUTROPHILS % (AUTO) 76 % (42-75); PLATELET COUNT 127 10^3/uL (130-400); WHITE BLOOD COUNT 6.9 10^3/uL (4.3-11.0)
[2022-01-16 06:02] LABS: ALBUMIN 2.5 GM/DL (3.2-4.5); BILIRUBIN,TOTAL 0.9 MG/DL (0.1-1.0); CALCIUM 8.1 MG/DL (8.5-10.1); CREATININE SERUM 1.1 MG/DL (0.60-1.30); POTASSIUM 3.7 MMOL/L (3.6-5.0); TOTAL PROTEIN 5.5 GM/DL (6.4-8.2)
[2022-01-16] MEDS: BETHANECHOL 25 MG (URECHOLINE) TAB PO SCH ×2 (06:19→10:55)
[2022-01-16] MEDS: SUCRALFATE 1 GM (CARAFATE) TAB PO SCH ×2 (06:19→10:55)
[2022-01-16] MEDS: CYANOCOBALAMIN 1,000 MCG (VITAMIN B-12) TABLET PO SCH (06:19)
[2022-01-16 08:12] VITALS: BP 127/58
--- NOTE | 2022-01-16 09:03 | Physical Therapy Daily Note ---
PT Daily Note-Current Subjective Patient in bed pre tx, agrees to PT, has he says very little pain in bed at rest. Appearance Patient in recliner post tx with nurse call, phone, tray, all needs met. Mental Status Patient Orientation: Person, Place, Situation Transfers SCALE: Activities may be completed with or without assistive devices. 0-Chjlieglqr-fnkkyjr completes the activity by him/herself with no assistance from a helper. 5-Set-up or Clean-up Assistance-helper sets up or cleans up; patient completes activity. [place] assists only prior to or following the activity. 4-Supervision or Touching Assistance-helper provides verbal cues and/or touching/steadying and/or contact guard assistance as patient completes activity. Assistance may be provided throughout the activity or intermittently. 3-Partial/Moderate Assistance-helper does LESS THAN HALF the effort. [place] lifts, holds or supports trunk or limbs, but provides less than half the effort. 2-Substantial/Maximal Assistance-helper does MORE THAN HALF the effort. [place] lifts or holds trunk or limbs and provides more than half the effort. 3-Scfmsdnxg-kzcbal does ALL the effort. Patient does none of the effort to complete the activity. Or, the assistance of 2 or more helpers is required for the patient to complete the activity. If activity was not attempted, code reason: 7-Patient Refused. 9-Not Applicable-not attempted and the patient did not perform the activity before the current illness, exacerbation or injury. 10-Not Attempted due to Environmental Limitations-(lack of equipment, weather restraints, etc.). 88-Not Attempted due to Medical Conditions or Safety Concerns. Roll Left & Right (QC): 3 Lying to Sitting/Side of Bed(Q: 3 Sit to Stand (QC): 2 Chair/Xrq-eu-Erjel Xfer(QC): 2 Patient sat to the side of the bed with min assist, very slow but he was able to do most of it himself. Patient was able to scoot to the edge of the bed on his own but needed max assist for sit to stand. He stood twice at the side of the bed, trying to turn and sit into the recliner. He was able to turn about mcfp on the third attempt and had to be turned more and lowered with therapist assist into the recliner. Weight Bearing Right Lower Extremity: Right Weight Bearing/Tolerated Left Lower Extremity: Left Full Weight Bearing Exercises Seated Therapy Exercises: Ankle pumps, Long arc quads (x10) Seated Reps: 20 Treatments bed mobility and transfers, LE ROM Assessment Current Status: Fair Progress improved supine to sit, patient just needs extra time to perform it on his own PT Time Clock Repairer Goals Chcf Goals PT Chcf Goals Time Frame: Feb 16, 2022 Roll Left & Right (QC): 3 Sit to Lying (QC): 3 Lying-Sitting on Side/Bed(QC): 3 Sit to Stand (QC): 3 Chair/Cda-cc-Mgxiv Xfer(QC): 3 Toilet Transfer (QC): 3 Walk 10 feet (QC): 3 Walk 50ft with 2 Turns (QC): 3 PT Plan Problem List Problem List: Activity Tolerance, Functional Strength, Safety, Balance, Gait, Transfer, Bed Mobility, ROM Treatment/Plan Treatment Plan: Continue Plan of Care Treatment Plan: Bed Mobility, Education, Functional Activity Mario, Functional Strength, Gait, Safety, Therapeutic Exercise, Transfers Treatment Duration: Feb 16, 2022 Frequency: 11 times per week Estimated Hrs Per Day: .5 hour per day Safety Risks/Education Patient Education: Transfer Techniques, Correct Positioning, Safety Issues Teaching Recipient: Patient Teaching Methods: Demonstration, Discussion Response to Teaching: Reinforcement Needed Time/GCodes Time In: 826 Time Out: 845 Total Billed Treatment Time: 19 Total Billed Treatment 1 visit FA 19' GRANT CARRERA PT Jan 16, 2022 09:02
[2022-01-16] MEDS: MONTELUKAST 10 MG (SINGULAIR) TAB PO SCH (09:47)
[2022-01-16] MEDS: PANTOPRAZOLE 40 MG (PROTONIX) TAB PO SCH (09:47)
[2022-01-16] MEDS: DOCUSATE SODIUM 100 MG (COLACE) CAP PO SCH (09:47)
[2022-01-16] MEDS: LORATADINE (CLARITIN) 10 MG TAB PO SCH (09:47)
[2022-01-16] MEDS: TAMSULOSIN 0.4 MG (FLOMAX) CAP PO SCH (09:47)
[2022-01-16] MEDS: ASPIRIN E.C. 81 MG (ECOTRIN) TAB PO SCH (09:47)
[2022-01-16] MEDS: ENOXAPARIN 40 MG/0.4 ML (LOVENOX) SYR SC SCH (09:47)
[2022-01-16] MEDS: SENNOSIDES 8.6 MG (SENOKOT) TAB PO SCH (09:47)
[2022-01-16] MEDS ORDERED: ASPI-1238 PO (10:13)
[2022-01-16] MEDS ORDERED: CEFT1FRO2 IV (10:13)
[2022-01-16] MEDS ORDERED: ACHD5005 PO (10:13)
[2022-01-16] MEDS ORDERED: DOCU100C37 PO (10:13)
[2022-01-16] MEDS ORDERED: IRON100V2 IV (10:13)
[2022-01-16] MEDS ORDERED: ENOX40DI8 SC (10:13)
[2022-01-16] MEDS ORDERED: LORA2VIA3 IVP (10:13)
[2022-01-16] MEDS ORDERED: CYAN-41 PO (10:13)
[2022-01-16] MEDS ORDERED: MONT-40 PO (10:13)
[2022-01-16] MEDS ORDERED: BETH25TA2 PO (10:13)
[2022-01-16] MEDS ORDERED: POLY17PO54 PO (10:13)
[2022-01-16] MEDS ORDERED: ALBU2.5V4 INH (10:13)
[2022-01-16] MEDS ORDERED: SNN187T PO (10:13)
[2022-01-16] MEDS ORDERED: BISA10SU8 PR (10:13)
[2022-01-16] MEDS ORDERED: LORA10TA7 PO (10:13)
[2022-01-16] MEDS ORDERED: Haloperidol Lactate IM (10:13)
--- NOTE | 2022-01-16 10:14 | Discharge Inst-Skilled Nursing ---
Discharge Inst-Skilled NF Reconcile Patient Problems Problems Reviewed?: Yes Chief Complaint CC: Right hip fracture HPI: This is an 86yoWM clinic patient of mine who recently moved from [place] to live with his son at [facility] who has numerous medical conditions managed at [facility] who just DC from [facility] after a 3 day stay last for abdominal pain with N/V and was found to have pancreatitis with abnormal CT scans revealing cystic liver and kidneys with chronic left sided ATX but was able to DC last Friday and saw me in clinic on Friday in [place] and was feeling well and amylase and lipase were trending down and he was tolerating bland diet who suffered a fall at home today when he was using his urinal and has suffered a right hip fracture after assessed in [facility] ER shortly before my arrival for morning rounds. I assessed him in the ER and since Dr Kelly was unavailable I reached out to Dr Cade and he graciously agreed for consultation and plans on repairing the fracture tomorrow at 0800. Dr Cruz has been consulted since he recently had a defib and pacemaker placed in 05/2021. He does have a h/o CKD and his creat was 2.4 at [facility] last week but has improved to 1.4 today. He is considered high risk for complications before during and post operatively but no ability to modify his risks so it is prudent to proceed on with repair as planned. He is ANVIK and his at bedside agrees with the plan. Considering hos complex issues I had Tylor Neal MSIII compile problem list on Friday after clinic appt: Hemorrhoids Diverticulosis of sigmoid and descending colon Chronic Heart Failure Pneumonia Lower GI Bleed Hypertension Polycystic dysplastic kidney Polycystic kidney Weakness due to cerebrovascular accident Sepsis Bacteremia due to E. Coli Infection to ESBL-producing E coli Myopathy Pancreatitis Abdominal Pain Common Bile Duct obstruction GI bleed Diverticulosis Colitis Emesis Influenza Reactive airway disease Urinary frequency Polycystic liver disease UTI Bacteremia Coronary artery disease History of sepsis Cholangitis due to bile duct calculus with obstruction Cough Sinusitis Leukocytosis Elevated LFTs Bacteremia Klebsiella pneumoniae Dehydration Vomiting Abdominal pain SIRS Biliary tract disease Chronic Kidney Disease (CKD) Anemia Acute bronchitis Recurrent fever Body aches Malaise and fatigue Renal insufficiency Intractable abdominal pain Persistent atrial fibrillation with RVR Hypertension Acute renal injury Diverticulitis Left Bundle Branch Block (LBBB) Other cardiomyopathies Combined rheumatic disorders of mitral, aortic, and tricuspid valves Ischemic cardiomyopathy Hematemesis Hypotension Tachycardia CKD stage 3, GFR 30-59 ml/min Cardiac Arrest DVT prophylaxis Hip pain Cellulitis Constipation Gastritis Duodenal bulb ulcer Sepsis Dilated cardiomyopathy Rib fractures Hypokalemia Hypomagnesemia Hyperlipidemia Sleep apnea Tricuspid regurgitation Acute on chronic systolic heart failure Mitral regurgitation Localized edema Duodenal perforation C. diff colitis- cannot tolerate vancomycin HIT Left femoral hip fracture and repair Left total knee replacement Drains for liver cyst ([facility] [place]) Liver abscess Benign tremor involving right arm GI bleeding Gastritis Peptic ulcer disease Gout Hyperlipidemia Cerebrovascular accident Fever of unknown origin Appendectomy Cholecystectomy Hernia repair Tonsillectomy Hip procedure Parathyroid adenoma removal Lumbar surgery Multiple ERCPs Duodenal perforation repaired following the ERCP Multiple colonoscopies and sigmoidoscopies PTCA of right coronary artery in 2006 Left femoral hip fracture and repair Transurethral resection of the prostate Vasectomy PICC lines in the past GI bleed on warfarin Chronic recurrent bacteremia Dyslipidemia Degenerative joint disease Polycythemia Patient Instructions Patient Problems: Right hip fracture Goal: [place] Consult/Follow Up/Orders Follow Up Appt.: PCP Dr Solorio Skilled NF Admit to: [facility] Certification (SNF) I certify that SNF services are required to be given on an inpatient basis because of the above named patient's need for fci care on a continuing basis for the conditions(s) for which he/she was receiving inpatient hospital services prior to his/her transfer to the SNF. Detention Facility Order: Nursing Services, Abatement Worker-Evaluate & Treat, Physical Therapy-Evaluate & Treat Oxygen Delivery Method: Room Air Discharge Diet: No Restrictions New & Resume Previous Orders New Medications: Albuterol Sulfate (Albuterol Sulfate) 2.5 Mg/3 Ml Vial.neb 2.5 MG INH RTQ4HR PRN for SHORTNESS OF BREATH for 7 Days, INHALER Aspirin (Aspirin EC) 81 Mg Tablet.dr 81 MG PO DAILY for 30 Days, TAB Bethanechol Chloride (Bethanechol Chloride) 25 Mg Tablet 25 MG PO ACHS for 30 Days, TAB Bisacodyl (Bisacodyl) 10 Mg Supp.rect 10 MG GA DAILY PRN for CONSTIPATION-2ND LINE for 7 Days, SUPP.RECT Ceftriaxone Na/Dextrose,Iso (Ceftriaxone 1 gm Piggyback) 1 Gm/50 Ml Froz.piggy 1 GM IV DAILY for 3 Days, UNIT Cyanocobalamin (Vitamin B-12) (Vitamin B-12) 1,000 Mcg Tablet 1000 MCG PO DAILY@0700 for 30 Days, TAB Docusate Sodium (Docusate Sodium) 100 Mg Capsule 100 MG PO BID for 7 Days, CAP Enoxaparin Sodium (Enoxaparin Sodium) 40 Mg/0.4 Ml Syringe 40 MG SC Q24H for 14 Days, SYRINGE [Haloperidol Lactate] () 2 INJ 2 MG IM Q6H PRN for AGITATION for 7 Days, VIAL Hydrocodone Bit/Acetaminophen (HYDROcodone/APAP 5 MG/325 MG TAB) 1 Tab Tab 1 EA PO Q4H PRN for PAIN-MODERATE (5-7) for 30 Days, TAB Iron Sucrose Complex (Venofer) 200 Mg/10 Ml Vial 200 MG IV Q48H@09, #3 VIAL Loratadine (Loratadine) 10 Mg Tablet 10 MG PO DAILY for 30 Days, TAB Lorazepam (Lorazepam) 2 Mg/1 Ml Vial 0.25 MG IVP Q4H PRN for ANXIETY, #7 VIAL Montelukast Sodium (Montelukast Sodium) 10 Mg Tablet 10 MG PO DAILY@0900 for 30 Days, TAB Polyethylene Glycol 3350 (Polyethylene Glycol 3350) 17 Gm Powd.pack 17 GM PO BID PRN for CONSTIPATION-1ST LINE for 7 Days, EACH Sennosides (Senna Lax) 8.6 Mg Tablet 8.6 MG PO BID for 7 Days, TAB Continued Medications: Acetaminophen (Tylenol Extra Strength) 500 Mg Tablet 1000 MG PO BID, TAB TAKES 2 (500MG) TABLETS Allopurinol (Allopurinol) 100 Mg Tablet 100 MG PO DAILY, TAB Ascorbic Acid (Vitamin C) 250 Mg Tab 250 MG PO DAILY, TAB Escitalopram Oxalate (Escitalopram Oxalate) 10 Mg Tablet 10 MG PO DAILY, TAB Fluticasone Propionate (Flonase Allergy Relief) 9.9 Ml Verbena.susp 1 SPRAY NS DAILY PRN for CONGESTION, EACH Folic Acid (Folic Acid) 1 Mg Tablet 1 MG PO DAILY, TAB Furosemide (Furosemide) 40 Mg Tablet 40 MG PO DAILY, TAB Gabapentin (Gabapentin) 100 Mg Capsule 100 MG PO BID, CAP Loperamide HCl (Imodium A-D) 2 Mg Tablet 2-4 MG PO UD PRN for DIARRHEA, TAB TAKES 1-2 (2MG) TABLETS Metoprolol Succinate (Metoprolol Succinate) 25 Mg Tab.er.24h 25 MG PO DAILY, TAB Pantoprazole Sodium (Pantoprazole Sodium) 40 Mg Tablet.dr 40 MG PO DAILY, TAB Potassium Chloride (Potassium Chloride) 20 Meq Tab.er.prt 20 MEQ PO DAILY, TAB Sucralfate (Sucralfate) 1 Gm Tablet 1 GM PO QIDACHS, TAB Tamsulosin HCl (Flomax) 0.4 Mg Cap 0.4 MG PO BID, CAP Topiramate (Topiramate) 50 Mg Tablet 50 MG PO DAILY, TAB Discontinued Medications: Ferrous Sulfate (Iron) 325 Mg Tablet 325 MG PO DAILY, TAB Ronit Solorio Jan 16, 2022 10:13 RONIT SOLORIO DO Jan 16, 2022 10:14
--- NOTE | 2022-01-16 10:14 | Discharge Summary ---
Diagnosis/Chief Complaint Date of Admission Jan 12, 2022 at 11:04 Date of Discharge Discharge Date: Jan 16, 2022 Discharge Diagnosis Assessment: Right hip fracture status post uncomplicated repair per Dr Cade POD#2 CAD previous stents Ischemic cardiomyopathy has pacemaker placed 05/2021 CKD Recent pancreatitis last weekend amylase and lipase now 143/527 Acute UTI placed on Rocephin Urinary Incontinence, Dysuria GERD BPH Presbycusis Memory deficit Frail status Gout Depression Renal lithasis h/o hyperparathyroidism Neuropathy Polycystic kidney disease Cystic liver disease Previous liver abscess s/p drainage x 2 (1 at [place] other at [facility] in ) Anemia Plan: Dr Cruz consult Dr Cade consult Pain management Check labs in am Schultz Lovenox held until after surgery Monitor hgb Gentle IVF High risk for psychosis 01/13/2022: Supportive care Haldol and Ativan if needed for delirium PT and OT tomorrow Monitor labs Rocephin for UTI Iron infusions Swing bed at [place] 01/14/2022: Supportive care PT and OT Monitor labs B12 injection and tablet Flomax, Urecholine, bladder scan for urinary incontinence Rocephin for UTI Restart IV fluids due to poor urinary output Swing bed at [place] 01/15/2022: Supportive care PT and OT Blood transfusion- Hgb 7.6 on 01/15 Swingbed at [place] Discharge Summary Discharge Physical Examination Allergies: Coded Allergies: gentamicin (Verified Allergy, Unknown, 01/12/22) vancomycin (Verified Allergy, Unknown, 01/12/22) Vitals & I&Os Vital Signs Date Time Temp Pulse Resp B/P (MAP) Pulse Ox O2 Delivery O2 Flow Rate FiO2 01/16/22 11:51 36.9 71 18 107/56 (73) 97 Room Air 01/16/22 11:04 0.00 01/12/22 14:12 21 General Appearance: Alert, Oriented X3, Cooperative Respiratory: Clear to Auscultation Cardiovascular: Regular Rate Psych/Mental Status: Mental Status NL Hospital Course Was the Problem List Reviewed?: Yes Hospital Course: This is an 86yo WM who suffered a fall at home on 01/12/2022 when he was using his urinal and has suffered a right hip fracture after assessed in [facility]. Patient of Dr. Solorio. Has multiple chronic comorbitidies and medical problems including CHF, CAD, polycystic dysplastic kidney, CVA, and others listed in the History and Physical. Dr. Cade performed surgical repair on hip on 01/13/2022. Cardiology was also consulted with the patients history of a pacemaker placement. Patient is considered high risk for complications before, during, and post operatively with no ability to modify his risks though risks were weighed comparing the patients immobility vs surgical complications. Dr. Cruz, cardiology was also consulted. Patient given supportive care throughout course, also received PT postoperatively. Patient had a UTI postoperatively which was treated with Rocephin. Also had urinary incontinence resolved with Flomax, Urecholine, and bladder scan. Was also having poor urinary output in which IV fluids were restarted. Patient encountered anemia with Hgb down to 7.6. Was given a blood transfusion which raised Hgb to 8.2. Patient also given iron infusions and B12 injection and tablets through his post op care. Creatinine was monitored and remained stable. Patient had 1/5 muscle strength of the right hip in all directions on his last visit. Patient was eating and drinking fluids well at end of course in [facility]. Having some issues with constipation. Urinating well. He is being transferred to a swing bed in [facility] (last 24 hrs) Laboratory Tests 01/13/22 05:52: White Blood Count 8.5, Red Blood Count 3.23L, Hemoglobin 8.9L, Hematocrit 29L, M justyna Corpuscular Volume 89, Mean Corpuscular Hemoglobin 28, Mean Corpuscular Hemoglobin Concent 31L, Red Cell Distribution Width 22.9H, Platelet Count 120L, Mean Platelet Volume 10.1, Immature Granulocyte % (Auto) 1, Neutrophils (%) (Auto) 82H, Lymphocytes (%) (Auto) 9L, Monocytes (%) (Auto) 6, Eosinophils (%) (Auto) 2, Basophils (%) (Auto) 1, Neutrophils # (Auto) 6.9, Lymphocytes # (Auto) 0.7L, Monocytes # (Auto) 0.5, Eosinophils # (Auto) 0.1, Basophils # (Auto) 0.1, Immature Granulocyte # (Auto) 0.1, Sodium Level 136, Potassium Level 3.9, Chloride Level 113H, Carbon Dioxide Level 15L, Anion Gap 8, Blood Urea Nitrogen 27H, Creatinine 1.40H, Estimat Glomerular Filtration Rate 49, BUN/Creatinine Ratio 19, Glucose Level 117H, Calcium Level 8.2L, Corrected Calcium 9.3, Iron Level 31L, Total Bilirubin 1.0, Aspartate Amino Transf (AST/SGOT) 11, Alanine Aminotransferase (ALT/SGPT) 7, Alkaline Phosphatase 62, Total Protein 5.6L, Albumin 2.6L, Vitamin B12 Level 218 01/14/22 05:30: White Blood Count 11.8H, Red Blood Count 3.15L, Hemoglobin 8.6L, Hematocrit 28L, Mean Corpuscular Volume 90, Mean Corpuscular Hemoglobin 27, Mean Corpuscular Hemoglobin Concent 31L, Red Cell Distribution Width 23.2H, Platelet Count 129L, Mean Platelet Volume 9.8, Immature Granulocyte % (Auto) 1, Neutrophils (%) (Auto) 89H, Lymphocytes (%) (Auto) 5L, Monocytes (%) (Auto) 5, Eosinophils (%) (Auto) 0, Basophils (%) (Auto) 0, Neutrophils # (Auto) 10.6H, Lymphocytes # (Auto) 0.6L, Monocytes # (Auto) 0.5, Eosinophils # (Auto) 0.0, Basophils # (Auto) 0.0, Immature Granulocyte # (Auto) 0.1, Sodium Level 137, Potassium Level 4.1, Chloride Level 113H, Carbon Dioxide Level 15L, Anion Gap 9, Blood Urea Nitrogen 33H, Creatinine 1.51H, Estimat Glomerular Filtration Rate 45, BUN/Creatinine Ratio 22, Glucose Level 144H, Calcium Level 8.0L, Corrected Calcium 9.0, Total Bilirubin 0.5, Aspartate Amino Transf (AST/SGOT) 13, Alanine Aminotransferase (ALT/SGPT) 8, Alkaline Phosphatase 60, Total Protein 6.0L, Albumin 2.7L, Neutrophils % (Manual) 91, Lymphocytes % (Manual) 7, Monocytes % (Manual) 1, Band Neutrophils 1, Percent Immature Platelet Fraction 5.4, Basophilic Stippling SLIGHT, Anisocytosis SLIGHT, Elliptocytes SLIGHT 01/15/22 05:23: White Blood Count 8.3, Red Blood Count 2.76L, Hemoglobin 7.6L, Hematocrit 25L, Mean Corpuscular Volume 90, Mean Corpuscular Hemoglobin 28, Mean Corpuscular Hemoglobin Concent 31L, Red Cell Distribution Width 23.3H, Platelet Count 121L, Mean Platelet Volume 10.6, Immature Granulocyte % (Auto) 1, Neutrophils (%) (Auto) 77H, Lymphocytes (%) (Auto) 12, Monocytes (%) (Auto) 7, Eosinophils (%) (Auto) 2, Basophils (%) (Auto) 1, Neutrophils # (Auto) 6.4, Lymphocytes # (Auto) 1.0, Monocytes # (Auto) 0.6, Eosinophils # (Auto) 0.1, Basophils # (Auto) 0.1, Immature Granulocyte # (Auto) 0.1, Sodium Level 136, Potassium Level 3.8, Chloride Level 112H, Carbon Dioxide Level 17L, Anion Gap 7, Blood Urea Nitrogen 31H, Creatinine 1.29, Estimat Glomerular Filtration Rate 54, BUN/Creatinine Ratio 24, Glucose Level 109H, Calcium Level 8.3L, Corrected Calcium 9.5, Total Bilirubin 0.4, Aspartate Amino Transf (AST/SGOT) 10, Alanine Aminotransferase (ALT/SGPT) < 6, Alkaline Phosphatase 58, Total Protein 5.3L, Albumin 2.5L, Percent Immature Platelet Fraction 5.3 01/16/22 05:21: White Blood Count 6.9, Red Blood Count 2.99L, Hemoglobin 8.2L, Hematocrit 26L, Mean Corpuscular Volume 88, Mean Corpuscular Hemoglobin 27, Mean Corpuscular Hemoglobin Concent 31L, Red Cell Distribution Width 22.5H, Platelet Count 127L, Mean Platelet Volume 10.6, Immature Granulocyte % (Auto) 2, Neutrophils (%) (Auto) 76H, Lymphocytes (%) (Auto) 12, Monocytes (%) (Auto) 9, Eosinophils (%) (Auto) 1, Basophils (%) (Auto) 1, Neutrophils # (Auto) 5.2, Lymphocytes # (Auto) 0.9L, Monocytes # (Auto) 0.6, Eosinophils # (Auto) 0.1, Basophils # (Auto) 0.0, Immature Granulocyte # (Auto) 0.1, Sodium Level 139, Potassium Level 3.7, Chloride Level 112H, Carbon Dioxide Level 17L, Anion Gap 10, Blood Urea Nitrogen 26H, Creatinine 1.10, Estimat Glomerular Filtration Rate 65, BUN/Creatinine Ratio 24, Glucose Level 107H, Calcium Level 8.1L, Corrected Calcium 9.3, Total Bilirubin 0.9, Aspartate Amino Transf (AST/SGOT) 12, Alanine Aminotransferase (ALT/SGPT) 7, Alkaline Phosphatase 68, Total Protein 5.5L, Albumin 2.5L, Percent Immature Platelet Fraction 4.9 01/16/22 16:18: Lab Scanned Report Transfusion Reaction Form Microbiology 01/13/22 MRSA Screen - Final, Complete MRSA not isolated Pending Labs Microbiology Date/Time Source Procedure Growth Status 01/13/22 00:00 Nasal MRSA Screen - Final MRSA not isolated Complete Laboratory Tests 01/13/22 05:52: White Blood Count 8.5, Red Blood Count 3.23, Hemoglobin 8.9, Hematocrit 29, Mean Corpuscular Volume 89, Mean Corpuscular Hemoglobin 28, Mean Corpuscular Hemoglobin Concent 31, Red Cell Distribution Width 22.9, Platelet Count 120, Mean Platelet Volume 10.1, Immature Granulocyte % (Auto) 1, Neutrophils (%) (Auto) 82, Lymphocytes (%) (Auto) 9, Monocytes (%) (Auto) 6, Eosinophils (%) (Auto) 2, Basophils (%) (Auto) 1, Neutrophils # (Auto) 6.9, Lymphocytes # (Auto) 0.7, Monocytes # (Auto) 0.5, Eosinophils # (Auto) 0.1, Basophils # (Auto) 0.1, Immature Granulocyte # (Auto) 0.1, Sodium Level 136, Potassium Level 3.9, Chloride Level 113, Carbon Dioxide Level 15, Anion Gap 8, Blood Urea Nitrogen 27, Creatinine 1.40, Estimat Glomerular Filtration Rate 49, BUN/Creatinine Ratio 19, Glucose Level 117, Calcium Level 8.2, Corrected Calcium 9.3, Iron Level 31, Total Bilirubin 1.0, Aspartate Amino Transf (AST/SGOT) 11, Alanine Aminotransferase (ALT/SGPT) 7, Alkaline Phosphatase 62, Total Protein 5.6, Albumin 2.6, Vitamin B12 Level 218 01/14/22 05:30: White Blood Count 11.8, Red Blood Count 3.15, Hemoglobin 8.6, Hematocrit 28, Mean Corpuscular Volume 90, Mean Corpuscular Hemoglobin 27, Mean Corpuscular Hemoglobin Concent 31, Red Cell Distribution Width 23.2, Platelet Count 129, Mean Platelet Volume 9.8, Immature Granulocyte % (Auto) 1, Neutrophils (%) (Auto) 89, Lymphocytes (%) (Auto) 5, Monocytes (%) (Auto) 5, Eosinophils (%) (Auto) 0, Basophils (%) (Auto) 0, Neutrophils # (Auto) 10.6, Lymphocytes # (Auto) 0.6, Monocytes # (Auto) 0.5, Eosinophils # (Auto) 0.0, Basophils # (Auto) 0.0, Immature Granulocyte # (Auto) 0.1, Sodium Level 137, Potassium Level 4.1, Chloride Level 113, Carbon Dioxide Level 15, Anion Gap 9, Blood Urea Nitrogen 33, Creatinine 1.51, Estimat Glomerular Filtration Rate 45, BUN/Creatinine Ratio 22, Glucose Level 144, Calcium Level 8.0, Corrected Calcium 9.0, Total Bilirubin 0.5, Aspartate Amino Transf (AST/SGOT) 13, Alanine Aminotransferase (ALT/SGPT) 8, Alkaline Phosphatase 60, Total Protein 6.0, Albumin 2.7, Neutrophils % (Manual) 91, Lymphocytes % (Manual) 7, Monocytes % (Manual) 1, Band Neutrophils 1, Percent Immature Platelet Fraction 5.4, Basophilic Stippling SLIGHT, Anisocytosis SLIGHT, Elliptocytes SLIGHT 01/15/22 05:23: White Blood Count 8.3, Red Blood Count 2.76, Hemoglobin 7.6, Hematocrit 25, Mean Corpuscular Volume 90, Mean Corpuscular Hemoglobin 28, Mean Corpuscular Hemoglobin Concent 31, Red Cell Distribution Width 23.3, Platelet Count 121, Mean Platelet Volume 10.6, Immature Granulocyte % (Auto) 1, Neutrophils (%) (Auto) 77, Lymphocytes (%) (Auto) 12, Monocytes (%) (Auto) 7, Eosinophils (%) (Auto) 2, Basophils (%) (Auto) 1, Neutrophils # (Auto) 6.4, Lymphocytes # (Auto) 1.0, Monocytes # (Auto) 0.6, Eosinophils # (Auto) 0.1, Basophils # (Auto) 0.1, Immature Granulocyte # (Auto) 0.1, Sodium Level 136, Potassium Level 3.8, Chloride Level 112, Carbon Dioxide Level 17, Anion Gap 7, Blood Urea Nitrogen 31, Creatinine 1.29, Estimat Glomerular Filtration Rate 54, BUN/Creatinine Ratio 24, Glucose Level 109, Calcium Level 8.3, Corrected Calcium 9.5, Total Bilirubin 0.4, Aspartate Amino Transf (AST/SGOT) 10, Alanine Aminotransferase (ALT/SGPT) < 6, Alkaline Phosphatase 58, Total Protein 5.3, Albumin 2.5, Percent Immature Platelet Fraction 5.3 01/16/22 05:21: White Blood Count 6.9, Red Blood Count 2.99, Hemoglobin 8.2, Hematocrit 26, Mean Corpuscular Volume 88, Mean Corpuscular Hemoglobin 27, Mean Corpuscular Hemoglobin Concent 31, Red Cell Distribution Width 22.5, Platelet Count 127, Mean Platelet Volume 10.6, Immature Granulocyte % (Auto) 2, Neutrophils (%) (Auto) 76, Lymphocytes (%) (Auto) 12, Monocytes (%) (Auto) 9, Eosinophils (%) (Auto) 1, Basophils (%) (Auto) 1, Neutrophils # (Auto) 5.2, Lymphocytes # (Auto) 0.9, Monocytes # (Auto) 0.6, Eosinophils # (Auto) 0.1, Basophils # (Auto) 0.0, Immature Granulocyte # (Auto) 0.1, Sodium Level 139, Potassium Level 3.7, Chloride Level 112, Carbon Dioxide Level 17, Anion Gap 10, Blood Urea Nitrogen 26, Creatinine 1.10, Estimat Glomerular Filtration Rate 65, BUN/Creatinine Ratio 24, Glucose Level 107, Calcium Level 8.1, Corrected Calcium 9.3, Total Bilirubin 0.9, Aspartate Amino Transf (AST/SGOT) 12, Alanine Aminotransferase (ALT/SGPT) 7, Alkaline Phosphatase 68, Total Protein 5.5, Albumin 2.5, Percent Immature Platelet Fraction 4.9 01/16/22 16:18: Lab Scanned Report Transfusion Reaction Form Discharge Home Medications: Active Scripts Active Vitamin B-12 (Cyanocobalamin (Vitamin B-12)) 1,000 Mcg Tablet 1,000 Mcg PO DAILY@0700 30 Days Senna Lax (Sennosides) 8.6 Mg Tablet 8.6 Mg PO BID 7 Days Polyethylene Glycol 3350 17 Gm Powd.pack 17 Gm PO BID PRN 7 Days Docusate Sodium 100 Mg Capsule 100 Mg PO BID 7 Days Bisacodyl 10 Mg Supp.rect 10 Mg [place] DAILY PRN 7 Days Montelukast Sodium 10 Mg Tablet 10 Mg PO DAILY@0900 30 Days Lorazepam 2 Mg/1 Ml Vial 0.25 Mg IVP Q4H PRN [Haloperidol Lactate] 2 Inj 2 Mg IM Q6H PRN 7 Days HYDROcodone/APAP 5 MG/325 MG TAB (Acetaminophen/Hydrocodone Bitart) 1 Tab Tab 1 Ea PO Q4H PRN 30 Days Aspirin EC (Aspirin) 81 Mg Tablet.dr 81 Mg PO DAILY 30 Days Enoxaparin Sodium 40 Mg/0.4 Ml Syringe 40 Mg SC Q24H 14 Days Venofer (Iron Sucrose Complex) 200 Mg/10 Ml Vial 200 Mg IV Q48H@09 Albuterol Sulfate 2.5 Mg/3 Ml Vial.neb 2.5 Mg INH RTQ4HR PRN 7 Days Bethanechol Chloride 25 Mg Tablet 25 Mg PO ACHS 30 Days Ceftriaxone 1 gm Piggyback (Ceftriaxone Na/Dextrose,Iso) 1 Gm/50 Ml Froz.piggy 1 Gm IV DAILY 3 Days Loratadine 10 Mg Tablet 10 Mg PO DAILY 30 Days Reported Vitamin C (Ascorbic Acid) 250 Mg Tab 250 Mg PO DAILY Imodium A-D (Loperamide HCl) 2 Mg Tablet 2-4 Mg PO UD PRN TAKES 1-2 (2MG) TABLETS Flonase Allergy Relief (Fluticasone Propionate) 9.9 Ml [place].susp 1 [place] NS DAILY PRN Tylenol Extra Strength (Acetaminophen) 500 Mg Tablet 1,000 Mg PO BID TAKES 2 (500MG) TABLETS Gabapentin 100 Mg Capsule 100 Mg PO BID Flomax (Tamsulosin HCl) 0.4 Mg Cap 0.4 Mg PO BID Escitalopram Oxalate 10 Mg Tablet 10 Mg PO DAILY Topiramate 50 Mg Tablet 50 Mg PO DAILY Metoprolol Succinate 25 Mg Tab.er.24h 25 Mg PO DAILY Potassium Chloride 20 Meq Tab.er.prt 20 Meq PO DAILY Folic Acid 1 Mg Tablet 1 Mg PO DAILY Furosemide 40 Mg Tablet 40 Mg PO DAILY Pantoprazole Sodium 40 Mg Tablet.dr 40 Mg PO DAILY Sucralfate 1 Gm Tablet 1 Gm PO QIDACHS Allopurinol 100 Mg Tablet 100 Mg PO DAILY Instructions to patient/family Please see electronic discharge instructions given to patient. Diagnosis/Problems Diagnosis/Problems (1) Hip fracture, right (2) Pancreatitis (3) CKD (chronic kidney disease) stage 3, GFR 30-59 ml/min (4) Anemia (5) CAD (coronary artery disease) (6) Pacemaker (7) Presbycusis (8) Fall Clinical Quality Measures DVT/VTE Risk/Contraindication: Contraindications-Pharm: Other *list below* Other: or GEORGINA SOLORIO DO Jan 16, 2022 10:14
--- NOTE | 2022-01-16 10:22 | Occupational Ther Daily Note ---
OT Current Status-Daily Note Subjective Pt alert, sitting in recliner. Pt agrees to therapy. No c/o pain while sitting in recliner. Mental Status/Objective Patient Orientation: Person, Place, Time, Situation Attachments: IV ADL-Treatment Pt declines any ADLs today. Therapy Code Descriptions/Definitions Functional [place] Measure: 0=Not Assessed/NA 4=Minimal Assistance 1=Total Assistance 5=Supervision or Setup 2=Maximal Assistance 6=Modified [place] 3=Moderate Assistance 7=Complete IndependenceSCALE: Activities may be completed with or without assistive devices. 3-Rukhcbsdmo-gjgjkeh completes the activity by him/herself with no assistance from a helper. 5-Set-up or Clean-up Assistance-helper sets up or cleans up; patient completes activity. Waller assists only prior to or following the activity. 4-Supervision or Touching Assistance-helper provides verbal cues and/or touching/steadying and/or contact guard assistance as patient completes activity. Assistance may be provided throughout the activity or intermittently. 3-Partial/Moderate Assistance-helper does LESS THAN HALF the effort. Waller lifts, holds or supports trunk or limbs, but provides less than half the effort. 2-Substantial/Maximal Assistance-helper does MORE THAN HALF the effort. Waller lifts or holds trunk or limbs and provides more than half the effort. 9-Hasofnkhc-znbpxs does ALL the effort. Patient does none of the effort to complete the activity. Or, the assistance of 2 or more helpers is required for the patient to complete the activity. If activity was not attempted, code reason: 7-Patient Refused. 9-Not Applicable-not attempted and the patient did not perform the activity before the current illness, exacerbation or injury. 10-Not Attempted due to Environmental Limitations-(lack of equipment, weather restraints, etc.). 88-Not Attempted due to Medical Conditions or Safety Concerns. Other Treatment Pt completed B UE exercises against gravity. 1 set 10 reps of shldr flex, shldr horizontal abd and shldr horizontal add. Pt SOA with exercise and fatigued quickly. After session, pt sitting in recliner with call light/phone in reach. All needs met in room. OT Board Runner Goals Board Runner Goals Time Frame: Feb 01, 2022 Eating (QC): 6 Oral Hygiene (QC): 5 Toileting Hygiene (QC): 4 Shower/Bathe Self (QC): 3 Upper Body Dressing (QC): 5 Lower Body Dressing (QC): 3 On/Off Footwear (QC): 3 Additional Goals: 1-Demonstrate ADL Tasks, 2-Verbalize Understanding, 3-Imp roveStrength/Mario 1=Demonstrate adherence to instructed precautions during ADL tasks. 2=Patient will verbalize/demonstrate understanding of assistive devices/modifications for ADL. 3=Patient will improve strength/tolerance for activity to enable patient to perform ADL's. OT Education/Plan Problem List/Assessment Assessment: Decreased Activ Tolerance, Decreased UE Strength, Impaired Self- Care Skills Discharge Recommendations Plan/Recommendations: Continue POC Treatment Plan/Plan of Care Patient would benefit from OT for education, treatment and training to promote independence in ADL's, mobility, safety and/or upper extremity function for ADL's. Plan of Care: ADL Retraining, Functional Mobility, UE Funct Exercise/Act Treatment Duration: Feb 01, 2022 Frequency: 3 times per week (3-5 times per week) Rehab Potential: Guarded Time/GCodes Start Time: 09:55 Stop Time: 10:10 Total Time Billed (hr/min): 15 Billed Treatment Time 1 visit-EX 1 (15 min) GERRY LANDRUM Jan 16, 2022 10:22
--- NOTE | 2022-01-16 10:54 | Progress Note ---
IRENE DIAZ 01/16/22 1054: Progress Note Hospital Course: This is an 86yo WM who suffered a fall at home on 01/12/2022 when he was using his urinal and has suffered a right hip fracture after assessed in [facility]. Patient of Dr. Solorio. Has multiple chronic comorbitidies and medical problems including CHF, CAD, polycystic dysplastic kidney, CVA, and others listed in the History and Physical. Dr. Cade performed surgical repair on hip on 01/13/2022. Cardiology was also consulted with the patients history of a pacemaker placement. Patient is considered high risk for complications before, during, and post operatively with no ability to modify his risks though risks were weighed comparing the patients immobility vs surgical complications. Dr. Cruz, cardiology was also consulted. Patient given supportive care throughout course, also received PT postoperatively. Patient had a UTI postoperatively which was treated with Rocephin. Also had urinary incontinence resolved with Flomax, Ur echoline, and bladder scan. Was also having poor urinary output in which IV fluids were restarted. Patient encountered anemia with Hgb down to 7.6. Was given a blood transfusion which raised Hgb to 8.2. Patient also given iron infusions and B12 injection and tablets through his post op care. Creatinine was monitored and remained stable. Patient had 1/5 muscle strength of the right hip in all directions on his last visit. Patient was eating and drinking fluids well at end of course in [facility]. Having some issues with constipation. Urinating well. He is being transferred to a swing bed in [place] RONIT SOLORIO DO 01/17/22 0556: Supervisory-Addendum Brief Verification & Attestation Participated in pt care: history, MDM, physical Personally performed: exam, history, MDM, supervision of care Care discussed with: Medical Student Procedures: n/a Results interpretation: Verified all documentation Verification and Attestation of Medical Student E/M Service A medical student performed and documented this service in my presence. I reviewed and verified all information documented by the medical student and made modifications to such information, when appropriate. I personally performed the physical exam and medical decision making. Ronit Solorio Jan 17, 2022,05:56 IRENE DIAZ Jan 16, 2022 10:54 RONIT SOLORIO DO Jan 17, 2022 05:56
[2022-01-16 11:04] VITALS: BP 127/58
[2022-01-16 11:51] VITALS: BP 107/56
== END 2022-01-16 14:25 | disposition swing bed (61) | DRG 481 ==
LOC: 4TH 11:04
PROVIDERS: ADMIT Internal Medicine; ATTEND Internal Medicine
PROC: 0QH636Z Insertion of Intramedullary Internal Fixation Device into Right Upper Femur, Percutaneous Approach (ICD-10-PCS; principal; 2022-01-13 07:44)
DX: S72.144A Nondisplaced intertrochanteric fracture of right femur, initial encounter for closed fracture (principal); N39.0 Urinary tract infection, site not specified; I13.0 Hypertensive heart and chronic kidney disease with heart failure and stage 1 through stage 4 chronic kidney disease, or unspecified chronic kidney disease; I50.22 Chronic systolic (congestive) heart failure; I42.0 Dilated cardiomyopathy; Q61.3 Polycystic kidney, unspecified; Q44.6 Cystic disease of liver; N18.30 Chronic kidney disease, stage 3 unspecified; I25.10 Atherosclerotic heart disease of native coronary artery without angina pectoris; E78.5 Hyperlipidemia, unspecified; E78.00 Pure hypercholesterolemia, unspecified; H91.10 Presbycusis, unspecified ear; I48.0 Paroxysmal atrial fibrillation; I08.3 Combined rheumatic disorders of mitral, aortic and tricuspid valves; I25.5 Ischemic cardiomyopathy; F03.90 Unspecified dementia, unspecified severity, without behavioral disturbance, psychotic disturbance, mood disturbance, and anxiety; N40.1 Benign prostatic hyperplasia with lower urinary tract symptoms; N39.498 Other specified urinary incontinence; K21.9 Gastro-esophageal reflux disease without esophagitis; M10.9 Gout, unspecified; F32.A Depression, unspecified; N20.0 Calculus of kidney; G62.9 Polyneuropathy, unspecified; D64.9 Anemia, unspecified; K59.00 Constipation, unspecified; Z95.5 Presence of coronary angioplasty implant and graft; Z95.810 Presence of automatic (implantable) cardiac defibrillator; Z87.01 Personal history of pneumonia (recurrent); Z88.1 Allergy status to other antibiotic agents
CPT/HCPCS: 36415; 71045; 76000; 80053; 82607; 83540; 85007; 85025; 85027; 86850; 86900; 86901; 86920; 87081; 93005; 93306; 94760